=== PATIENT | male | born 1940 | race Caucasian/White ===

== ENCOUNTER 2016-09-04 04:19 | Inpatient (IN) | payer MEDICARE, BC ==
--- NOTE | 2016-09-04 04:58 | EDM.PDOC ---
ED HPI GENERAL MEDICAL PROBLEM - General Chief Complaint: Cardiovascular Problem Stated Complaint: SOB / LEG AND JOINT PAIN / UNABLE TO SLEEP Time Seen by Provider: 09/04/16 04:40 Source of Information: Reports: Patient, Family History Limitations: Reports: No Limitations - History of Present Illness INITIAL COMMENTS - FREE TEXT/NARRATIVE: pt arrived with sob and ankle swelling. He also feels like he has not been able to void. 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 He recently had a bone marrow donw. He has received procrit twice to get his hemoglobin up He recently has noted marked ankle swelling. Onset: Gradual Duration: Day(s): Location: Reports: Chest, Lower Extremity, Left, Lower Extremity, Right Associated Symptoms: Reports: Shortness of Breath, Other ( can,t sleep at nite. ) Knee/lower legs Pain Score (Numeric/FACES): 6 - Related Data Allergies Allergy/AdvReac Type Severity Reaction Status Date / Time adhesive tape Allergy Rash Verified 09/04/16 05:02 codeine Allergy Dizziness Verified 09/04/16 05:02 tiotropium Allergy Cannot Verified 09/04/16 05:02 [From Spiriva with Remember HandiHaler] Home Meds: Home Meds Albuterol Sulfate [Proair Hfa] 2 puff IH Q4HR PRN 09/04/16 [History] Albuterol/Ipratropium [DuoNeb 3.0-0.5 MG/3 ML] 3 ml INH Q4HR 09/04/16 [History] Ascorbic Acid 500 mg PO DAILY 09/04/16 [History] Aspirin [Halfprin] 81 mg PO DAILY 09/04/16 [History] Budesonide/Formoterol [Symbicort 160-4.5 MCG] 2 puff INH BID 09/04/16 [History] Cholecalciferol (Vitamin D3) [Vitamin D3] 400 unit PO DAILY 09/04/16 [History] Cyanocobalamin (Vitamin B12) [Vitamin B12] 1,000 mcg PO DAILY 09/04/16 [History] Doxycycline [Doxycycline Hyclate] 100 mg PO DAILY 09/04/16 [History] Ferrous Sulfate [Iron] 325 mg PO DAILY 09/04/16 [History] Folic Acid 1 mg PO DAILY 09/04/16 [History] Furosemide [Lasix] 20 mg PO DAILY 09/04/16 [History] HCTZ/Triamterene [Maxzide 25-37.5 MG] 1 each PO DAILY 09/04/16 [History] Ipratropium [Atrovent HFA Inh] 2 puff INH BID 09/04/16 [History] Losartan [Cozaar] 25 mg PO DAILY 09/04/16 [History] Metoprolol Tartrate [Lopressor] 25 mg PO BID 09/04/16 [History] Naproxen 500 mg PO BID 09/04/16 [History] [place]-3/DHA/Epa/Fish Oil [[place]-3 Fish Oil 1,000 MG Sfgl] 1,000 mg PO DAILY 04/22 [History] Simvastatin [Zocor] 40 mg PO BEDTIME 09/04/16 [History] ED ROS GENERAL - Review of Systems Review Of Systems: See Below Constitutional: Reports: No Symptoms HEENT: Reports: No Symptoms Respiratory: Reports: Shortness of Breath Cardiovascular: Reports: Dyspnea on Exertion, Edema Endocrine: Reports: No Symptoms GI/Abdominal: Reports: No Symptoms : Reports: Other (pt feels he is having problems voiding. ) Musculoskeletal: Reports: Muscle Pain Skin: Reports: No Symptoms ED EXAM, GENERAL - Physical Exam Exam: See Below Free Text/Narrative:: Pt fels like he is very fatiqued because he has not been able to rest. He has marked swelling in both legs. Exam Limited By: No Limitations General Appearance: Alert, Mild Distress Nose: Normal Inspection Throat/Mouth: Normal Inspection Head: Atraumatic Neck: Normal Inspection Respiratory/Chest: Decreased Breath Sounds, Other ( sob with activity) Cardiovascular: Regular Rate, Rhythm GI/Abdominal: Soft, Non-Tender, Other (bladder does not feel distended and there was very little in the bladder when a scan was done. ) (Male) Exam: Deferred Rectal (Males) Exam: Deferred Back Exam: Normal Inspection Extremities: Pedal Edema, Other ( plu 3 edema. ) Neurological: Alert, Oriented, Normal Cognition Psychiatric: Normal Affect Skin Exam: Jaundice, Pallor Course - Vital Signs Last Recorded V/S: Last Vital Signs Temp 36.6 C 09/04/16 04:41 Pulse 66 09/04/16 05:45 Resp 16 09/04/16 05:45 BP 152/68 H 09/04/16 05:58 Pulse Ox 97 09/04/16 05:10 - Orders/Labs/Meds Orders: Active Orders 24 hr Category Date Time Status EKG Documentation Completion [RC] ASDIRECTED Care 09/04/16 05:05 Active Chest 2V [CR] Stat Exams 09/04/16 05:02 Taken Sodium Chloride 0.9% [Saline Flush] Med 09/04/16 05:03 Active 10 ml FLUSH ASDIRECTED PRN Saline Lock Insert [OM.PC] Routine Oth 09/04/16 05:03 Ordered EKG 12 Lead [EK] Routine Ther 09/04/16 05:05 Ordered Medication Orders Sodium Chloride (Saline Flush) 10 ml FLUSH ASDIRECTED PRN PRN Reason: Keep Vein Open Last Admin: 09/04/16 05:58 Dose: 10 ml Labs: Laboratory Tests 09/04/16 09/04/16 09/04/16 Range/Units 04:48 04:48 04:48 WBC 4.4 L (4.5-11.0) K/uL RBC 2.68 L (4.30-5.90) M/uL Hgb 8.9 L (12.0-15.0) g/dL Hct 28.9 L (40.0-54.0) % MCV 108 H (80-98) fL MCH 33 H (27-31) pg MCHC 31 L (32-36) % Plt Count 139 L (150-400) K/uL Neut % (Auto) 66 (36-66) % Lymph % (Auto) 25 (24-44) % [facility] % (Auto) 7 H (2-6) % Eos % (Auto) 2 (2-4) % Baso % (Auto) 1 (0-1) % Sodium 137 L (140-148) mmol/L Potassium 4.0 (3.6-5.2) mmol/L Chloride 101 (100-108) mmol/L Carbon Dioxide 29 (21-32) mmol/L Anion Gap 11.0 (5.0-14.0) mmol/L BUN 61 H (7-18) mg/dL Creatinine 1.8 H (0.8-1.3) mg/dL Est Cr Clr Drug Dosing 36.00 mL/min Estimated GFR (MDRD) 37 L (>60) Glucose 106 (74-106) mg/dL Calcium 8.8 (8.5-10.1) mg/dL Total Bilirubin 2.3 H (0.2-1.0) mg/dL AST 79 H (15-37) U/L ALT 5 L (12-78) U/L Alkaline Phosphatase 38 L (46-116) U/L Creatine Kinase 93 (39-308) U/L Troponin I < 0.017 (0.000-0.056) ng/mL Xys-B-Rltyfauhnor Pept 6414 H (5-125) pg/mL Total Protein 7.2 (6.4-8.2) g/dL Albumin 3.9 (3.4-5.0) g/dL Globulin 3.3 (2.3-3.5) g/dL Albumin/Globulin Ratio 1.2 (1.2-2.2) Urine Color Urine Appearance Urine pH (4.5-8.0) Ur Specific [place] (1.008-1.030) Urine Protein (NEGATIVE) mg/dL Urine Glucose (UA) (NEGATIVE) mg/dL Urine Ketones (NEGATIVE) mg/dL Urine Occult Blood (NEGATIVE) Urine Nitrite (NEGAITVE) Urine Bilirubin (NEGATIVE) Urine Urobilinogen (NORMAL) mg/dL Ur Leukocyte Esterase (NEGATIVE) Urine RBC (0-5) Urine WBC (0-5) Ur Epithelial Cells Amorphous Sediment Urine Bacteria Urine Mucus 09/04/16 Range/Units 05:54 WBC (4.5-11.0) K/uL RBC (4.30-5.90) M/uL Hgb (12.0-15.0) g/dL Hct (40.0-54.0) % MCV (80-98) fL MCH (27-31) pg MCHC (32-36) % Plt Count (150-400) K/uL Neut % (Auto) (36-66) % Lymph % (Auto) (24-44) % [facility] % (Auto) (2-6) % Eos % (Auto) (2-4) % Baso % (Auto) (0-1) % Sodium (140-148) mmol/L Potassium (3.6-5.2) mmol/L Chloride (100-108) mmol/L Carbon Dioxide (21-32) mmol/L Anion Gap (5.0-14.0) mmol/L BUN (7-18) mg/dL Creatinine (0.8-1.3) mg/dL Est Cr Clr Drug Dosing mL/min Estimated GFR (MDRD) (>60) Glucose (74-106) mg/dL Calcium (8.5-10.1) mg/dL Total Bilirubin (0.2-1.0) mg/dL AST (15-37) U/L ALT (12-78) U/L Alkaline Phosphatase (46-116) U/L Creatine Kinase (39-308) U/L Troponin I (0.000-0.056) ng/mL Ujc-I-Ikaxmyacwqj Pept (5-125) pg/mL Total Protein (6.4-8.2) g/dL Albumin (3.4-5.0) g/dL Globulin (2.3-3.5) g/dL Albumin/Globulin Ratio (1.2-2.2) Urine Color Yellow Urine Appearance Clear Urine pH 5.0 (4.5-8.0) Ur Specific [place] 1.015 (1.008-1.030) Urine Protein Trace (NEGATIVE) mg/dL Urine Glucose (UA) Normal (NEGATIVE) mg/dL Urine Ketones Negative (NEGATIVE) mg/dL Urine Occult Blood Moderate (NEGATIVE) Urine Nitrite Negative (NEGAITVE) Urine Bilirubin Negative (NEGATIVE) Urine Urobilinogen Normal (NORMAL) mg/dL Ur Leukocyte Esterase Negative (NEGATIVE) Urine RBC 0-5 (0-5) Urine WBC 0-5 (0-5) Ur Epithelial Cells Few Amorphous Sediment Not seen Urine Bacteria Moderate Urine Mucus Not seen Meds: Medications Generic Name Dose Route Start Last Admin Trade Name Freq PRN Reason Stop Dose Admin Sodium Chloride 10 ml 09/04/16 05:03 09/04/16 05:58 Saline Flush FLUSH 10 ml ASDIRECTED PRN Administration Keep Vein Open Discontinued Medications Generic Name Dose Route Start Last Admin Trade Name Freq PRN Reason Stop Dose Admin Doxycycline Hyclate 100 mg 09/04/16 07:02 Vibramycin PO 09/04/16 07:03 ONETIME ONE Furosemide 60 mg 09/04/16 05:04 09/04/16 05:58 Lasix IVPUSH 09/04/16 05:05 60 mg ONETIME ONE Administration - Re-Assessments/Exams Free Text/Narrative Re-Assessment/Exam: 09/04/16 06:23 pt has a markedly elevated bnp. He has a 8.9 hg and a elevated bilirubin. His creatnine is elevated. He was given lasix 60mg iv. 09/04/16 06:25 he has a previous positive test for anaplamosis and he is on doxycline for that. He had a chest xray which shows soim chf and has alot of chronic changes. Departure - Departure Time of Disposition: 07:12 Disposition: Admitted As Inpatient 68 Reason for Transfer *Q: Primary PCI Indicated Condition: Fair Clinical Impression: Fluid overload, Anemia, Renal insufficiency, Elevated brain natriuretic peptide (BNP) level Forms: ED Department Discharge Care Plan Goals: admit to Dr Rawls - My Orders Last 24 Hours: My Active Orders 09/04/16 05:02 Chest 2V [CR] Stat 09/04/16 05:03 Sodium Chloride 0.9% [Saline Flush] 10 ml FLUSH ASDIRECTED PRN Saline Lock Insert [OM.PC] Routine 09/04/16 05:05 EKG Documentation Completion [RC] ASDIRECTED EKG 12 Lead [EK] Routine - Assessment/Plan Last 24 Hours: My Active Orders 09/04/16 05:02 Chest 2V [CR] Stat 09/04/16 05:03 Sodium Chloride 0.9% [Saline Flush] 10 ml FLUSH ASDIRECTED PRN Saline Lock Insert [OM.PC] Routine 09/04/16 05:05 EKG Documentation Completion [RC] ASDIRECTED EKG 12 Lead [EK] Routine
[2016-09-04] MEDS ORDERED: Sodium Chloride 0.9% 10 ML Syringe FLUSH PRN (05:03)
[2016-09-04] MEDS ORDERED: Furosemide 40 MG/4 ML VIAL IVPUSH ONE (05:04)
[2016-09-04] MEDS ORDERED: Doxycycline 100 MG Cap PO ONE (07:02)
--- NOTE | 2016-09-04 08:18 | PCM.HP ---
H&P History of Present Illness - General Date of Service: 09/04/16 Source of Information: Patient, EMS Notes Reviewed, Family History Limitations: Reports: No Limitations - History of Present Illness Initial Comments - Free Text/Narative: He has had shortness of breath for months. He stopped taking the inhaler and Losartan because of unable to pass urine when he started taking this medicine. He has been unable to sleep because of shortness of breath when he lays down. He came to the ER because of anxiety and nable to get his breath. Duration of Symptoms: Reports: Week(s):, Chronic Severity: Moderate Improves with: Reports: Other (sitting up) Worsens with: Reports: Rest Associated Symptoms: Reports: Shortness of Breath, Weakness, Other (panic attacks) Knee/lower legs Pain Score (Numeric/FACES): 6 - Related Data Allergies/Adverse Reactions: Allergies Allergy/AdvReac Type Severity Reaction Status Date / Time adhesive tape Allergy Rash Verified 09/04/16 05:02 tiotropium Allergy Cannot Verified 09/04/16 05:02 [From Spiriva with [facility] HandiHaler] codeine AdvReac Dizziness Verified 09/04/16 08:58 Home Medications: Home Meds Albuterol Sulfate [Proair Hfa] 2 puff IH Q4HR PRN 09/04/16 [History] Albuterol/Ipratropium [DuoNeb 3.0-0.5 MG/3 ML] 3 ml INH Q4HR 09/04/16 [History] Ascorbic Acid 500 mg PO DAILY 09/04/16 [History] Aspirin [Halfprin] 81 mg PO DAILY 09/04/16 [History] Budesonide/Formoterol [Symbicort 160-4.5 MCG] 2 puff INH BID 09/04/16 [History] Cholecalciferol (Vitamin D3) [Vitamin D3] 400 unit PO DAILY 09/04/16 [History] Cyanocobalamin (Vitamin B12) [Vitamin B12] 1,000 mcg PO DAILY 09/04/16 [History] Doxycycline [Doxycycline Hyclate] 100 mg PO BID 09/04/16 [History] Ferrous Sulfate [Iron] 325 mg PO DAILY 09/04/16 [History] Folic Acid 1 mg PO DAILY 09/04/16 [History] Furosemide [Lasix] 20 mg PO DAILY 09/04/16 [History] HCTZ/Triamterene [Maxzide 25-37.5 MG] 1 each PO DAILY 09/04/16 [History] Ipratropium [Atrovent HFA Inh] 2 puff INH BID 09/04/16 [History] Losartan [Cozaar] 25 mg PO DAILY 09/04/16 [History] Metoprolol Tartrate [Lopressor] 25 mg PO BID 09/04/16 [History] Naproxen 500 mg PO BID 09/04/16 [History] [place]-3/DHA/Epa/Fish Oil [[place]-3 Fish Oil 1,000 MG Sfgl] 1,000 mg PO DAILY 04/22 [History] Simvastatin [Zocor] 40 mg PO BEDTIME 09/04/16 [History] Past Medical History Cardiovascular History: Reports: Bypass, Hypertension, CO, SOB on Exertion Respiratory History: Reports: Sleep Apnea, SOB Psychiatric History: Reports: Anxiety, Depression Endocrine/Metabolic History: Reports: Obesity/BMI 30+ Oncologic (Cancer) History: Reports: Colon - Infectious Disease History Infectious Disease History: Reports: Chicken Pox, Measles, Mumps - Past Surgical History Cardiovascular Surgical History: Reports: Coronary Artery Bypass GI Surgical History: Reports: Colonoscopy Social & Family History - Tobacco Use Smoking Status *Q: Current Status Unknown - Caffeine Use Caffeine Use: Reports: Coffee - Recreational Drug Use Recreational Drug Use: No H&P Review of Systems - Review of Systems: Review Of Systems: See Below General: Reports: Weakness, Fatigue HEENT: Reports: No Symptoms Pulmonary: Reports: Shortness of Breath, Wheezing, Cough Cardiovascular: Reports: Dyspnea on Exertion, PND, Edema Gastrointestinal: Reports: Constipation Genitourinary: Reports: Frequency Musculoskeletal: Reports: Other (multiple joint pains) Skin: Reports: No Symptoms Neurological: Reports: Difficulty Walking, Weakness Hematologic/Lymphatic: Reports: Anemia Exam - Exam Exam: See Below - Vital Signs Vital Signs: Last Vital Signs Temp 97.4 F 09/04/16 07:46 Pulse 77 09/04/16 07:46 Resp 16 09/04/16 07:46 BP 108/45 L 09/04/16 07:46 Pulse Ox 93 L 09/04/16 07:46 Weight: 256 lb 13.416 oz - Exam General: Alert, Moderate Distress HEENT: PERRLA, Hearing Intact, Mucosa Moist & [place], Nares Patent, Normal Nasal Septum, Posterior Pharynx Clear, Conjunctiva Clear, EOMI, EACs Clear, TMs Clear Neck: Supple, Trachea Midline, 2 Lungs: Clear to Auscultation, Normal Respiratory Effort Cardiovascular: Regular Rate, Regular Rhythm Abdomen: Normal Bowel Sounds, Soft Peripheral Pulses: 1+: Radial (L), Radial (R) Neurological: Cranial Nerves Intact, Reflexes Equal Bilateral Neuro Extensive - Mental Status: Alert, Oriented x3, Normal Mood/Affect, Normal Cognition, Memory Intact DTR: 1+: Bicep (L), Bicep (R) Psychiatric: Alert, Normal Affect, Normal Mood - Patient Data Lab Results Last 24 hrs: Laboratory Results - last 24 hr 09/04/16 09/04/16 09/04/16 Range/Units 04:48 04:48 04:48 WBC 4.4 L (4.5-11.0) K/uL RBC 2.68 L (4.30-5.90) M/uL Hgb 8.9 L (12.0-15.0) g/dL Hct 28.9 L (40.0-54.0) % MCV 108 H (80-98) fL MCH 33 H (27-31) pg MCHC 31 L (32-36) % Plt Count 139 L (150-400) K/uL Neut % (Auto) 66 (36-66) % Lymph % (Auto) 25 (24-44) % [place] % (Auto) 7 H (2-6) % Eos % (Auto) 2 (2-4) % Baso % (Auto) 1 (0-1) % Sodium 137 L (140-148) mmol/L Potassium 4.0 (3.6-5.2) mmol/L Chloride 101 (100-108) mmol/L Carbon Dioxide 29 (21-32) mmol/L Anion Gap 11.0 (5.0-14.0) mmol/L BUN 61 H (7-18) mg/dL Creatinine 1.8 H (0.8-1.3) mg/dL Est Cr Clr Drug Dosing 36.00 mL/min Estimated GFR (MDRD) 37 L (>60) Glucose 106 (74-106) mg/dL Calcium 8.8 (8.5-10.1) mg/dL Total Bilirubin 2.3 H (0.2-1.0) mg/dL AST 79 H (15-37) U/L ALT 5 L (12-78) U/L Alkaline Phosphatase 38 L (46-116) U/L Creatine Kinase 93 (39-308) U/L Troponin I < 0.017 (0.000-0.056) ng/mL Pyl-S-Ewtbsuykvtg Pept 6414 H (5-125) pg/mL Total Protein 7.2 (6.4-8.2) g/dL Albumin 3.9 (3.4-5.0) g/dL Globulin 3.3 (2.3-3.5) g/dL Albumin/Globulin Ratio 1.2 (1.2-2.2) Urine Color Urine Appearance Urine pH (4.5-8.0) Ur Specific [place] (1.008-1.030) Urine Protein (NEGATIVE) mg/dL Urine Glucose (UA) (NEGATIVE) mg/dL Urine Ketones (NEGATIVE) mg/dL Urine Occult Blood (NEGATIVE) Urine Nitrite (NEGAITVE) Urine Bilirubin (NEGATIVE) Urine Urobilinogen (NORMAL) mg/dL Ur Leukocyte Esterase (NEGATIVE) Urine RBC (0-5) Urine WBC (0-5) Ur Epithelial Cells Amorphous Sediment Urine Bacteria Urine Mucus 09/04/16 Range/Units 05:54 WBC (4.5-11.0) K/uL RBC (4.30-5.90) M/uL Hgb (12.0-15.0) g/dL Hct (40.0-54.0) % MCV (80-98) fL MCH (27-31) pg MCHC (32-36) % Plt Count (150-400) K/uL Neut % (Auto) (36-66) % Lymph % (Auto) (24-44) % [place] % (Auto) (2-6) % Eos % (Auto) (2-4) % Baso % (Auto) (0-1) % Sodium (140-148) mmol/L Potassium (3.6-5.2) mmol/L Chloride (100-108) mmol/L Carbon Dioxide (21-32) mmol/L Anion Gap (5.0-14.0) mmol/L BUN (7-18) mg/dL Creatinine (0.8-1.3) mg/dL Est Cr Clr Drug Dosing mL/min Estimated GFR (MDRD) (>60) Glucose (74-106) mg/dL Calcium (8.5-10.1) mg/dL Total Bilirubin (0.2-1.0) mg/dL AST (15-37) U/L ALT (12-78) U/L Alkaline Phosphatase (46-116) U/L Creatine Kinase (39-308) U/L Troponin I (0.000-0.056) ng/mL Ooc-B-Ebnutlwhurz Pept (5-125) pg/mL Total Protein (6.4-8.2) g/dL Albumin (3.4-5.0) g/dL Globulin (2.3-3.5) g/dL Albumin/Globulin Ratio (1.2-2.2) Urine Color Yellow Urine Appearance Clear Urine pH 5.0 (4.5-8.0) Ur Specific [place] 1.015 (1.008-1.030) Urine Protein Trace (NEGATIVE) mg/dL Urine Glucose (UA) Normal (NEGATIVE) mg/dL Urine Ketones Negative (NEGATIVE) mg/dL Urine Occult Blood Moderate (NEGATIVE) Urine Nitrite Negative (NEGAITVE) Urine Bilirubin Negative (NEGATIVE) Urine Urobilinogen Normal (NORMAL) mg/dL Ur Leukocyte Esterase Negative (NEGATIVE) Urine RBC 0-5 (0-5) Urine WBC 0-5 (0-5) Ur Epithelial Cells Few Amorphous Sediment Not seen Urine Bacteria Moderate Urine Mucus Not seen Result Diagrams: 09/05/16 05:11 09/05/16 06:24 *Q Meaningful Use (ADM) - VTE *Q VTE Criteria *Q: - Stroke *Q Stroke Criteria *Q: - AMI *Q AMI Criteria *Q: Problem List Initiated/Reviewed/Updated: Yes Orders Last 24hrs: Active Orders 24 hr Category Date Time Status EKG Documentation Completion [RC] ASDIRECTED Care 09/04/16 05:05 Active Chest 2V [CR] Stat Exams 09/04/16 05:02 Taken Sodium Chloride 0.9% [Saline Flush] Med 09/04/16 05:03 Active 10 ml FLUSH ASDIRECTED PRN Saline Lock Insert [OM.PC] Routine Oth 09/04/16 05:03 Ordered EKG 12 Lead [EK] Routine Ther 09/04/16 05:05 Ordered Medication Orders Sodium Chloride (Saline Flush) 10 ml FLUSH ASDIRECTED PRN PRN Reason: Keep Vein Open Last Admin: 09/04/16 05:58 Dose: 10 ml Assessment/Plan Comment:: Assessment/plan: #1. Severe right heart failure with pulmonary edema and severe pulmonary hypertension. Will put in the hospital and remove the water and treat the heart failure. Will get an echocardiogram. #2. Mitral valve stenosis and insufficiency with S/P mitral valve repair #3. Pancytopenia with Poss. MDS and hemolytic anemia: will monitor his blood work. #4. Rectal Cancer with s/P chemo-radiation: #5. ASHD with CAPS X 2 2000 #6. HLD: Continue with simvastatin. #7. Increased urinary frequency urgency: Will monitor his urine flow and bladder function. #8. Morbid obesity:
[2016-09-04] MEDS ORDERED: Albuterol 8 GM Inhaler INH PRN (08:48)
[2016-09-04] MEDS ORDERED: Metoprolol Tartrate 25 MG Tab PO SCH (09:00)
[2016-09-04] MEDS ORDERED: Losartan 50 MG Tab PO SCH (09:00)
[2016-09-04] MEDS ORDERED: Glucose Gel 15 GM in 37.5 GM Tube PO PRN (09:54)
[2016-09-04] MEDS ORDERED: Glucagon,Human Recombinant 1 MG Vial IM PRN (09:54)
[2016-09-04] MEDS ORDERED: 50% Dextrose in Water 50 ML Syringe IVPUSH PRN (09:54)
[2016-09-04] MEDS: Hydrochlorothiazide/Triamterene 25-37.5 MG Cap PO SCH (10:06)
[2016-09-04] MEDS: Tamsulosin 0.4 MG Cap.ER PO SCH (10:07)
[2016-09-04] MEDS: Ferrous Sulfate 325 MG Tab PO SCH (10:07)
[2016-09-04] MEDS: Furosemide 40 MG Tab PO SCH ×2 (10:08→13:25)
[2016-09-04] MEDS: Folic Acid 1 MG Tab PO SCH (10:08)
[2016-09-04] MEDS: Aspirin 81 MG Tab.EC PO SCH (10:08)
[2016-09-04] MEDS: Enoxaparin 30 MG/0.3 ML Syringe SUBCUT SCH (10:10)
[2016-09-04] MEDS: Cholecalciferol (Vitamin D3) 1,000 Unit Tab PO SCH (10:11)
[2016-09-04] MEDS: Fish Oil/Omega-3 Fatty Acids 1 Gm Cap PO SCH (10:11)
[2016-09-04] MEDS: Naproxen 250 MG Tab PO SCH ×2 (10:11→21:51)
[2016-09-04] MEDS: Ascorbic Acid 500 MG Tab PO SCH (10:12)
[2016-09-04] MEDS: Cyanocobalamin (Vitamin B12) 1,000 MCG Tab PO SCH (10:12)
[2016-09-04] MEDS: Formoterol/Mometasone 200-5 MCG 8.8 GM Inhaler IH SCH ×2 (10:14→21:48)
[2016-09-04] MEDS: Pramipexole 0.5 MG Tab PO SCH ×2 (12:30→21:51)
[2016-09-04] MEDS ORDERED: Simvastatin 20 MG Tab PO SCH (21:00)
[2016-09-04] MEDS: Doxycycline 100 MG Cap PO SCH (21:51)
[2016-09-05] MEDS ORDERED: Doxycycline 100 MG Cap PO SCH (06:30)
[2016-09-05] MEDS: Doxycycline 100 MG Cap PO SCH ×2 (07:27→20:11)
[2016-09-05] MEDS: Insulin Aspart 100 Units/ML 3 ML Pen SUBCUT PRN (07:32)
--- NOTE | 2016-09-05 08:14 | PCM.PN ---
- General Info Date of Service: 09/05/16 Functional Status: Reports: pain controlled - Review of Systems General: Reports: Weakness HEENT: Reports: no symptoms Pulmonary: Reports: shortness of breath Cardiovascular: Reports: No Symptoms Gastrointestinal: Reports: No symptoms Genitourinary: Reports: no symptoms Musculoskeletal: Reports: no symptoms Skin: Reports: no symptoms Psychiatric: Reports: no symptoms - Patient Data Vitals - most recent: Last Vital Signs Temp 97.1 F 09/05/16 07:00 Pulse 65 09/05/16 07:00 Resp 18 09/05/16 07:00 BP 96/42 L 09/05/16 07:00 Pulse Ox 96 09/05/16 07:00 Weight - most recent: 256 lb 13.416 oz I&O - last 24 hours: Intake & Output 09/04/16 09/05/16 09/05/16 22:59 06:59 14:59 Intake Total 270 500 840 Output Total 1650 600 Balance -1380 -100 840 Lab Results last 24 hrs: Laboratory Results - last 24 hr 09/05/16 09/05/16 Range/Units 05:11 06:24 WBC 2.2 L (4.5-11.0) K/uL RBC 2.26 L (4.30-5.90) M/uL Hgb 7.6 L (12.0-15.0) g/dL Hct 24.6 L (40.0-54.0) % MCV 109 H (80-98) fL MCH 34 H (27-31) pg MCHC 31 L (32-36) % Plt Count 111 L (150-400) K/uL Neut % (Auto) 61 (36-66) % Lymph % (Auto) 28 (24-44) % [place] % (Auto) 9 H (2-6) % Eos % (Auto) 2 (2-4) % Baso % (Auto) 1 (0-1) % Sodium 137 L (140-148) mmol/L Potassium 3.9 (3.6-5.2) mmol/L Chloride 102 (100-108) mmol/L Carbon Dioxide 28 (21-32) mmol/L Anion Gap 10.9 (5.0-14.0) mmol/L BUN 65 H (7-18) mg/dL Creatinine 1.8 H (0.8-1.3) mg/dL Est Cr Clr Drug Dosing 35.88 mL/min Estimated GFR (MDRD) 37 L (>60) Glucose 99 (74-106) mg/dL Calcium 8.5 (8.5-10.1) mg/dL Med Orders - Current: Current Medications Albuterol (Ventolin Hfa) 0 gm INH Q4H PRN PRN Reason: Wheezing Ascorbic Acid (Vitamin C) 500 mg PO DAILY [facility] Last Admin: 09/04/16 10:12 Dose: 500 mg Aspirin (Halfprin) 81 mg PO DAILY [facility] Last Admin: 09/04/16 10:08 Dose: 81 mg Cholecalciferol (Vitamin D3) 500 units PO DAILY [facility] Last Admin: 09/04/16 10:11 Dose: 500 units Cyanocobalamin (Vitamin B12) 1,000 mcg PO DAILY [facility] Last Admin: 09/04/16 10:12 Dose: 1,000 mcg Dextrose (Glutose 15) 15 gm PO ASDIRECTED PRN PRN Reason: HYPOGLYCEMIA Dextrose/Water (Dextrose 50% In Water) 50 ml IVPUSH ASDIRECTED PRN PRN Reason: HYPOGLYCEMIA Doxycycline Hyclate (Vibramycin) 100 mg PO BID@0600,2100 [facility] Last Admin: 09/05/16 07:27 Dose: 100 mg Enoxaparin Sodium (Lovenox) 30 mg SUBCUT DAILY [facility] Last Admin: 09/04/16 10:10 Dose: 30 mg Ferrous Sulfate (Ferrous Sulfate) 325 mg PO DAILY [facility] Last Admin: 09/04/16 10:07 Dose: 325 mg Fish Oil (Fish Oil) 1 gm PO DAILY [facility] Last Admin: 09/04/16 10:11 Dose: 1 gm Folic Acid (Folic Acid) 1 mg PO DAILY [facility] Last Admin: 09/04/16 10:08 Dose: 1 mg Furosemide (Lasix) 40 mg PO BIDDIURETIC [facility] Last Admin: 09/04/16 13:25 Dose: 40 mg Glucagon (Glucagen) 1 mg IM ASDIRECTED PRN PRN Reason: HYPOGLYCEMIA Insulin Aspart (Novolog) 0 - 5 unit SUBCUT QID PRN; Protocol PRN Reason: LOW CORRECTIONAL DOSE Last Admin: 09/05/16 07:32 Dose: 1 unit Mometasone Furoate/Formoterol Fumar (Dulera 200-5 Mcg) 2 puff IH BIDRT [facility] Last Admin: 09/04/16 21:48 Dose: Not Given Naproxen (Naprosyn) 500 mg PO BID [facility] Last Admin: 09/04/16 21:51 Dose: 500 mg Pramipexole Dihydrochloride (Mirapex) 0.125 mg PO BID [facility] Last Admin: 09/04/16 21:51 Dose: 0.125 mg Simvastatin (Zocor) 40 mg PO BEDTIME [facility] Last Admin: 09/04/16 21:49 Dose: 40 mg Sodium Chloride (Saline Flush) 10 ml FLUSH ASDIRECTED PRN PRN Reason: Keep Vein Open Last Admin: 09/04/16 05:58 Dose: 10 ml Tamsulosin HCl (Flomax) 0.4 mg PO PCBREAKFAST [facility] Last Admin: 09/04/16 10:07 Dose: 0.4 mg Triamterene/HCTZ (Dyazide 25-37.5 Mg) 1 each PO DAILY [facility] Last Admin: 09/04/16 10:06 Dose: 1 each Discontinued Medications Doxycycline Hyclate (Vibramycin) 100 mg PO ONETIME ONE Stop: 09/04/16 07:03 Last Admin: 09/04/16 07:34 Dose: 100 mg Furosemide (Lasix) 60 mg IVPUSH ONETIME ONE Stop: 09/04/16 05:05 Last Admin: 09/04/16 05:58 Dose: 60 mg Losartan Potassium (Cozaar) 25 mg PO DAILY [facility] Last Admin: 09/04/16 10:05 Dose: 25 mg Metoprolol Tartrate (Lopressor) 25 mg PO BID [facility] Last Admin: 09/04/16 10:09 Dose: 25 mg - Exam General: other (very tired falling asleep almost during a conversation) Neck: supple Lungs: Clear to auscultation, Normal respiratory effort Cardiovascular: Regular Rate, Regular Rhythm Extremities: edema Peripheral Pulses: 1+: Radial (L), Radial (R) Skin: warm, dry, intact Neurological: no new focal deficit Psy/Mental Status: labile mood - Problem List Review Problem List Initiated/Reviewed/Updated: Yes - My Orders Last 24 Hours: My Active Orders 09/04/16 08:48 Albuterol [Ventolin HFA] 0 gm INH Q4H PRN 09/04/16 09:00 Ascorbic Acid [Vitamin C] 500 mg PO DAILY Aspirin [Halfprin] 81 mg PO DAILY Cholecalciferol (Vitamin D3) [Vitamin D3] 500 units PO DAILY Cyanocobalamin (Vitamin B12) [Vitamin B12] 1,000 mcg PO DAILY Ferrous Sulfate 325 mg PO DAILY Folic Acid 1 mg PO DAILY Furosemide [Lasix] 40 mg PO BIDDIURETIC HCTZ/Triamterene [Dyazide 25-37.5 MG] 1 each PO DAILY Tamsulosin [Flomax] 0.4 mg PO PCBREAKFAST 09/04/16 09:15 Fish Oil/Energy-3 Fatty Acids [Fish Oil] 1 gm PO DAILY Mometasone/Formoterol [Dulera 200-5 MCG] 2 puff IH BIDRT Naproxen [Naprosyn] 500 mg PO BID 09/04/16 09:54 Dextrose 50% in Water 50 ml IVPUSH ASDIRECTED PRN Dextrose [Glutose 15] 15 gm PO ASDIRECTED PRN Glucagon,Human Recombinant [GlucaGen] 1 mg IM ASDIRECTED PRN Insulin Aspart [NovoLOG] 0 - 5 unit SUBCUT QID PRN 09/04/16 11:30 Accu Check [Blood Glucose Check, Bedside] [RC] QIDACANDBED Pramipexole [Mirapex] 0.125 mg PO BID 09/04/16 20:00 Communication Order [RC] ASDIRECTED 09/04/16 21:00 Doxycycline [Vibramycin] 100 mg PO BID@0600,2100 Simvastatin [Zocor] 40 mg PO BEDTIME 09/05/16 07:00 Echo Ltd [US] Routine 09/05/16 08:05 RED BLOOD CELLS LP [BBK] Routine TYPE AND SCREEN [BBK] Routine Transfuse Red Blood Cells [COMM] Routine 09/05/16 08:06 Communication Order [RC] ROUTINE 09/05/16 08:15 Communication Order [RC] DAILY 09/05/16 11:30 GLUCOSE POC LAB TO COLLECT [POC] QIDACANDBED 09/05/16 16:30 GLUCOSE POC LAB TO COLLECT [POC] QIDACANDBED 09/05/16 21:00 GLUCOSE POC LAB TO COLLECT [POC] QIDACANDBED 09/06/16 07:30 GLUCOSE POC LAB TO COLLECT [POC] QIDACANDBED 09/06/16 11:30 GLUCOSE POC LAB TO COLLECT [POC] QIDACANDBED 09/06/16 16:30 GLUCOSE POC LAB TO COLLECT [POC] QIDACANDBED 09/06/16 21:00 GLUCOSE POC LAB TO COLLECT [POC] QIDACANDBED 09/07/16 07:30 GLUCOSE POC LAB TO COLLECT [POC] QIDACANDBED 09/07/16 11:30 GLUCOSE POC LAB TO COLLECT [POC] QIDACANDBED 09/07/16 16:30 GLUCOSE POC LAB TO COLLECT [POC] QIDACANDBED 09/07/16 21:00 GLUCOSE POC LAB TO COLLECT [POC] QIDACANDBED 09/08/16 07:30 GLUCOSE POC LAB TO COLLECT [POC] QIDACANDBED 09/08/16 11:30 GLUCOSE POC LAB TO COLLECT [POC] QIDACANDBED 09/08/16 16:30 GLUCOSE POC LAB TO COLLECT [POC] QIDACANDBED 09/08/16 21:00 GLUCOSE POC LAB TO COLLECT [POC] QIDACANDBED 09/09/16 07:30 GLUCOSE POC LAB TO COLLECT [POC] QIDACANDBED 09/09/16 11:30 GLUCOSE POC LAB TO COLLECT [POC] QIDACANDBED 09/09/16 16:30 GLUCOSE POC LAB TO COLLECT [POC] QIDACANDBED 09/09/16 21:00 GLUCOSE POC LAB TO COLLECT [POC] QIDACANDBED 09/10/16 07:30 GLUCOSE POC LAB TO COLLECT [POC] QIDACANDBED 09/10/16 11:30 GLUCOSE POC LAB TO COLLECT [POC] QIDACANDBED - Plan Plan:: Assessment/plan: #1. Severe right heart failure with pulmonary edema and severe pulmonary hypertension. Echocardiogram to be done today. #2. Mitral valve stenosis and insufficiency with S/P mitral valve repair #3. Pancytopenia with Poss. MDS and hemolytic anemia: will monitor his blood work. Hb down to 7.6 today. Will give blood today. #4. Rectal Cancer with s/P chemo-radiation: #5. ASHD with CAPS X 2 2000 #6. HLD: Continue with simvastatin. #7. Increased urinary frequency urgency resolved presently. #8. Morbid obesity: #9. Chronic renal failure.
[2016-09-05] MEDS: Furosemide 40 MG Tab PO SCH ×2 (09:29→14:14)
[2016-09-05] MEDS: Ascorbic Acid 500 MG Tab PO SCH (09:29)
[2016-09-05] MEDS: Aspirin 81 MG Tab.EC PO SCH (09:29)
[2016-09-05] MEDS: Tamsulosin 0.4 MG Cap.ER PO SCH (09:29)
[2016-09-05] MEDS: Cholecalciferol (Vitamin D3) 1,000 Unit Tab PO SCH (09:30)
[2016-09-05] MEDS: Pramipexole 0.5 MG Tab PO SCH ×2 (09:30→20:13)
[2016-09-05] MEDS: Folic Acid 1 MG Tab PO SCH (09:31)
[2016-09-05] MEDS: Hydrochlorothiazide/Triamterene 25-37.5 MG Cap PO SCH (09:31)
[2016-09-05] MEDS: Fish Oil/Omega-3 Fatty Acids 1 Gm Cap PO SCH (09:31)
[2016-09-05] MEDS: Naproxen 250 MG Tab PO SCH ×2 (09:31→20:12)
--- NOTE | 2016-09-05 09:31 | CR ---
Mild-moderate cardiomegaly. Sternotomy. No focal consolidation.
[2016-09-05] MEDS: Ferrous Sulfate 325 MG Tab PO SCH (09:32)
[2016-09-05] MEDS: Cyanocobalamin (Vitamin B12) 1,000 MCG Tab PO SCH (09:32)
[2016-09-05] MEDS: Enoxaparin 30 MG/0.3 ML Syringe SUBCUT SCH (09:32)
[2016-09-05] MEDS: Formoterol/Mometasone 200-5 MCG 8.8 GM Inhaler IH SCH (20:13)
[2016-09-05] MEDS ORDERED: Simvastatin 20 MG Tab PO SCH (21:00)
[2016-09-06] MEDS ORDERED: Pramipexole 0.5 MG Tab PO SCH
[2016-09-06] MEDS: Furosemide 40 MG Tab PO SCH (07:02)
[2016-09-06] MEDS: Doxycycline 100 MG Cap PO SCH (07:02)
[2016-09-06 07:12] VITALS: BP 137/60
[2016-09-06] MEDS ORDERED: Metoprolol Tartrate 25 MG Tab PO SCH (08:00)
[2016-09-06] MEDS: Ferrous Sulfate 325 MG Tab PO SCH (08:30)
[2016-09-06] MEDS: Fish Oil/Omega-3 Fatty Acids 1 Gm Cap PO SCH (08:30)
[2016-09-06] MEDS: Tamsulosin 0.4 MG Cap.ER PO SCH (08:30)
[2016-09-06] MEDS: Hydrochlorothiazide/Triamterene 25-37.5 MG Cap PO SCH (08:30)
[2016-09-06] MEDS: Folic Acid 1 MG Tab PO SCH (08:31)
[2016-09-06] MEDS: Enoxaparin 30 MG/0.3 ML Syringe SUBCUT SCH (08:31)
[2016-09-06] MEDS: Aspirin 81 MG Tab.EC PO SCH (08:31)
[2016-09-06] MEDS: Naproxen 250 MG Tab PO SCH ×2 (08:32→08:40)
[2016-09-06] MEDS: Pramipexole 0.5 MG Tab PO SCH (08:32)
[2016-09-06] MEDS: Cholecalciferol (Vitamin D3) 1,000 Unit Tab PO SCH (08:33)
[2016-09-06] MEDS: Ascorbic Acid 500 MG Tab PO SCH (08:33)
[2016-09-06] MEDS: Cyanocobalamin (Vitamin B12) 1,000 MCG Tab PO SCH (08:33)
[2016-09-06] MEDS: Insulin Aspart 100 Units/ML 3 ML Pen SUBCUT PRN (08:34)
[2016-09-06] MEDS ORDERED: Hydrochlorothiazide/Triamterene 25-37.5 MG Cap PO SCH (09:00)
--- NOTE | 2016-09-06 09:13 | PCM.PN ---
- General Info Date of Service: 09/06/16 Functional Status: Reports: pain controlled - Review of Systems General: Reports: Weakness HEENT: Reports: no symptoms Pulmonary: Reports: shortness of breath Cardiovascular: Reports: No Symptoms Gastrointestinal: Reports: No symptoms Musculoskeletal: Reports: no symptoms Skin: Reports: no symptoms Neurological: Reports: No Symptoms Psychiatric: Reports: no symptoms - Patient Data Vitals - most recent: Last Vital Signs Temp 98 F 09/06/16 07:09 Pulse 89 09/06/16 08:29 Resp 20 09/06/16 07:09 BP 137/60 09/06/16 08:29 Pulse Ox 95 09/06/16 07:09 Weight - most recent: 247 lb 8 oz I&O - last 24 hours: Intake & Output 09/05/16 09/06/16 09/06/16 22:59 06:59 14:59 Intake Total 120 Output Total 1900 1000 Balance -1780 -1000 Lab Results last 24 hrs: Laboratory Results - last 24 hr 09/05/16 09/05/16 Range/Units 06:20 14:35 Hgb 8.5 L (12.0-15.0) g/dL Blood Type O POSITIVE Gel Antibody Screen Negative Crossmatch See Detail Med Orders - Current: Current Medications Albuterol (Ventolin Hfa) 0 gm INH Q4H PRN PRN Reason: Wheezing Ascorbic Acid (Vitamin C) 500 mg PO DAILY [facility] Last Admin: 09/06/16 08:33 Dose: 500 mg Aspirin (Halfprin) 81 mg PO DAILY [facility] Last Admin: 09/06/16 08:31 Dose: 81 mg Cholecalciferol (Vitamin D3) 500 units PO DAILY [facility] Last Admin: 09/06/16 08:33 Dose: 500 units Cyanocobalamin (Vitamin B12) 1,000 mcg PO DAILY [facility] Last Admin: 09/06/16 08:33 Dose: 1,000 mcg Dextrose (Glutose 15) 15 gm PO ASDIRECTED PRN PRN Reason: HYPOGLYCEMIA Dextrose/Water (Dextrose 50% In Water) 50 ml IVPUSH ASDIRECTED PRN PRN Reason: HYPOGLYCEMIA Doxycycline Hyclate (Vibramycin) 100 mg PO BID@0600,2100 [facility] Last Admin: 09/06/16 07:02 Dose: 100 mg Enoxaparin Sodium (Lovenox) 30 mg SUBCUT DAILY [facility] Last Admin: 09/06/16 08:31 Dose: 30 mg Ferrous Sulfate (Ferrous Sulfate) 325 mg PO DAILY [facility] Last Admin: 09/06/16 08:30 Dose: 325 mg Fish Oil (Fish Oil) 1 gm PO DAILY [facility] Last Admin: 09/06/16 08:30 Dose: 1 gm Folic Acid (Folic Acid) 1 mg PO DAILY [facility] Last Admin: 09/06/16 08:31 Dose: 1 mg Furosemide (Lasix) 40 mg PO BIDDIURETIC [facility] Last Admin: 09/06/16 07:02 Dose: 40 mg Glucagon (Glucagen) 1 mg IM ASDIRECTED PRN PRN Reason: HYPOGLYCEMIA Insulin Aspart (Novolog) 0 - 5 unit SUBCUT QID PRN; Protocol PRN Reason: LOW CORRECTIONAL DOSE Last Admin: 09/06/16 08:34 Dose: 1 unit Metoprolol Tartrate (Lopressor) 12.5 mg PO Q12H [facility] Last Admin: 09/06/16 08:29 Dose: 12.5 mg Mometasone Furoate/Formoterol Fumar (Dulera 200-5 Mcg) 2 puff IH BIDRT [facility] Last Admin: 09/05/16 20:13 Dose: Not Given Naproxen (Naprosyn) 500 mg PO BID [facility] Last Admin: 09/06/16 08:40 Dose: Not Given Pramipexole Dihydrochloride (Mirapex) 0.125 mg PO BID [facility] Last Admin: 09/06/16 08:32 Dose: 0.125 mg Simvastatin (Zocor) 40 mg PO BEDTIME [facility] Sodium Chloride (Saline Flush) 10 ml FLUSH ASDIRECTED PRN PRN Reason: Keep Vein Open Last Admin: 09/04/16 05:58 Dose: 10 ml Tamsulosin HCl (Flomax) 0.4 mg PO PCBREAKFAST [facility] Last Admin: 09/06/16 08:30 Dose: 0.4 mg Triamterene/HCTZ (Dyazide 25-37.5 Mg) 1 each PO DAILY [facility] Last Admin: 09/06/16 08:30 Dose: 1 each Discontinued Medications Doxycycline Hyclate (Vibramycin) 100 mg PO ONETIME ONE Stop: 09/04/16 07:03 Last Admin: 09/04/16 07:34 Dose: 100 mg Furosemide (Lasix) 60 mg IVPUSH ONETIME ONE Stop: 09/04/16 05:05 Last Admin: 09/04/16 05:58 Dose: 60 mg Losartan Potassium (Cozaar) 25 mg PO DAILY [facility] Last Admin: 09/04/16 10:05 Dose: 25 mg Metoprolol Tartrate (Lopressor) 25 mg PO BID [facility] Last Admin: 09/04/16 10:09 Dose: 25 mg Simvastatin (Zocor) 40 mg PO BEDTIME [facility] Last Admin: 09/04/16 21:49 Dose: 40 mg Simvastatin (Zocor) 20 mg PO BEDTIME [facility] Last Admin: 09/05/16 20:12 Dose: 20 mg - Exam General: alert, oriented HEENT: Pupils equal, Pupils reactive, EOMI, Mucous membr. moist/pink Neck: supple Lungs: Clear to auscultation, Normal respiratory effort Cardiovascular: Regular Rate, Regular Rhythm Back Exam: Normal Inspection, Full Range of Motion Peripheral Pulses: 1+: Radial (L), Radial (R) Skin: warm, dry, intact - Problem List Review Problem List Initiated/Reviewed/Updated: Yes - My Orders Last 24 Hours: My Active Orders 09/05/16 08:15 Communication Order [RC] DAILY 09/06/16 08:00 Metoprolol Tartrate [Lopressor] 12.5 mg PO Q12H 09/06/16 08:11 RT Spirometry with Bronchodilator [RESPCARE] Routine 09/06/16 11:30 GLUCOSE POC LAB TO COLLECT [POC] QIDACANDBED 09/06/16 16:30 GLUCOSE POC LAB TO COLLECT [POC] QIDACANDBED 09/06/16 21:00 GLUCOSE POC LAB TO COLLECT [POC] QIDACANDBED Simvastatin [Zocor] 40 mg PO BEDTIME 09/07/16 05:11 BASIC METABOLIC PANEL,BMP [CHEM] Routine CBC WITH AUTO DIFF [HEME] Routine 09/07/16 07:30 GLUCOSE POC LAB TO COLLECT [POC] QIDACANDBED 09/07/16 11:30 GLUCOSE POC LAB TO COLLECT [POC] QIDACANDBED 09/07/16 16:30 GLUCOSE POC LAB TO COLLECT [POC] QIDACANDBED 09/07/16 21:00 GLUCOSE POC LAB TO COLLECT [POC] QIDACANDBED 09/08/16 07:30 GLUCOSE POC LAB TO COLLECT [POC] QIDACANDBED 09/08/16 11:30 GLUCOSE POC LAB TO COLLECT [POC] QIDACANDBED 09/08/16 16:30 GLUCOSE POC LAB TO COLLECT [POC] QIDACANDBED 09/08/16 21:00 GLUCOSE POC LAB TO COLLECT [POC] QIDACANDBED 09/09/16 07:30 GLUCOSE POC LAB TO COLLECT [POC] QIDACANDBED 09/09/16 11:30 GLUCOSE POC LAB TO COLLECT [POC] QIDACANDBED 09/09/16 16:30 GLUCOSE POC LAB TO COLLECT [POC] QIDACANDBED 09/09/16 21:00 GLUCOSE POC LAB TO COLLECT [POC] QIDACANDBED 09/10/16 07:30 GLUCOSE POC LAB TO COLLECT [POC] QIDACANDBED 09/10/16 11:30 GLUCOSE POC LAB TO COLLECT [POC] QIDACANDBED - Plan Plan:: Assessment/plan: #1. Severe right heart failure with pulmonary edema and severe pulmonary hypertension. Echocardiogram report shows severe right heart failure and mitral valve disease. #2. Mitral valve stenosis and insufficiency with S/P mitral valve repair #3. Pancytopenia with Poss. MDS and hemolytic anemia: will monitor his blood work. Hb down to 8.5 today after one unit of blood yesterday. #4. Rectal Cancer with s/P chemo-radiation: #5. ASHD with CAPS X 2 2000 #6. HLD: Continue with simvastatin. #7. Increased urinary frequency urgency resolved presently. #8. Morbid obesity: #9. Chronic renal failure. #10. COPD: Have ordered a PFT with and without bronchodilators. #11. Palpations: blood pressure is up today so will restart metoprolol which should help control bp and heart rate.
--- NOTE | 2016-09-06 10:05 | PCM.DCSUM1 ---
Discharge Summary - Hospital Course Brief History: He has had shortness of breath for months. He stopped taking the inhaler and Losartan because of unable to pass urine when he started taking this medicine. He has been unable to sleep because of shortness of breath when he lays down. He came to the ER because of anxiety and nable to get his breath. - Discharge Data Discharge Date: 09/06/16 Discharge Disposition: Home, Self-Care 01 Condition: Good - Patient Summary/Data Hospital Course: He has improved with lasix with water loss and breathing better. The Echo cardiogram showed severe right heart failure and severe mitral valve disease. He has mod. to severe mitral valve regurgitation and aortic insufficiency and severe mitral valve stenosis. He also has severe pulmonary hypertension. This has been evaluated by a spray painter helper and the risk is to great for valve surgery.He will start taking inhalers which he has at home. - Patient Instructions Diet: Heart Healthy Diet Activity: As Tolerated - Discharge Plan Home Medications: Home Meds Albuterol Sulfate [Proair Hfa] 2 puff IH Q4HR PRN 09/04/16 [History] Albuterol/Ipratropium [DuoNeb 3.0-0.5 MG/3 ML] 3 ml INH Q4HR 09/04/16 [History] Ascorbic Acid 500 mg PO DAILY 09/04/16 [History] Aspirin [Halfprin] 81 mg PO DAILY 09/04/16 [History] Budesonide/Formoterol [Symbicort 160-4.5 MCG] 2 puff INH BID 09/04/16 [History] Cholecalciferol (Vitamin D3) [Vitamin D3] 400 unit PO DAILY 09/04/16 [History] Cyanocobalamin (Vitamin B12) [Vitamin B12] 1,000 mcg PO DAILY 09/04/16 [History] Doxycycline [Doxycycline Hyclate] 100 mg PO BID 09/04/16 [History] Ferrous Sulfate [Iron] 325 mg PO DAILY 09/04/16 [History] Folic Acid 1 mg PO DAILY 09/04/16 [History] Furosemide [Lasix] 20 mg PO DAILY 09/04/16 [History] HCTZ/Triamterene [Maxzide 25-37.5 MG] 1 each PO DAILY 09/04/16 [History] Ipratropium [Atrovent HFA Inh] 2 puff INH BID 09/04/16 [History] Losartan [Cozaar] 25 mg PO DAILY 09/04/16 [History] Metoprolol Tartrate [Lopressor] 25 mg PO BID 09/04/16 [History] Naproxen 500 mg PO BID 09/04/16 [History] [place]-3/DHA/Epa/Fish Oil [[place]-3 Fish Oil 1,000 MG Sfgl] 1,000 mg PO DAILY 04/22 [History] Simvastatin [Zocor] 20 mg PO BEDTIME 09/04/16 [History] Forms: ED Department Discharge Referrals: Hiro Rawls Sr, MD [Primary Care Provider] - - Discharge Summary/Plan Comment Discharge Summary/Plan Comment: Assessment/plan: #1. Severe right heart failure with pulmonary edema and severe pulmonary hypertension. Echocardiogram report shows severe right heart failure and mitral valve disease. Will continue with lasix at home. #2. Mitral valve stenosis and insufficiency with S/P mitral valve repair #3. Pancytopenia with Poss. MDS and hemolytic anemia: will monitor his blood work. Hb down to 8.5 today after one unit of blood yesterday. #4. Rectal Cancer with s/P chemo-radiation: #5. ASHD with CAPS X 2 2000 #6. HLD: Continue with simvastatin. #7. Increased urinary frequency urgency resolved presently. #8. Morbid obesity: #9. Chronic renal failure. #10. COPD: Have ordered a PFT with and without bronchodilators which can't be done today. He will restart his inhaler when he gets home. #11. Palpations: blood pressure is up today so will restart metoprolol which should help control bp and heart rate. - Patient Data Vitals - Most Recent: Last Vital Signs Temp 98 F 09/06/16 07:09 Pulse 89 09/06/16 08:29 Resp 20 09/06/16 07:09 BP 137/60 09/06/16 08:29 Pulse Ox 95 09/06/16 07:09 Weight - Most Recent: 256 lb 13.416 oz I&O - Last 24 hours: Intake & Output 09/05/16 09/06/16 09/06/16 22:59 06:59 14:59 Intake Total 120 300 Output Total 1900 1000 Balance -1780 -1000 300 Lab Results - Last 24 hrs: Laboratory Results - last 24 hr 09/05/16 09/05/16 Range/Units 06:20 14:35 Hgb 8.5 L (12.0-15.0) g/dL Blood Type O POSITIVE Gel Antibody Screen Negative Crossmatch See Detail Med Orders - Current: Current Medications Albuterol (Ventolin Hfa) 0 gm INH Q4H PRN PRN Reason: Wheezing Ascorbic Acid (Vitamin C) 500 mg PO DAILY [facility] Last Admin: 09/06/16 08:33 Dose: 500 mg Aspirin (Halfprin) 81 mg PO DAILY [facility] Last Admin: 09/06/16 08:31 Dose: 81 mg Cholecalciferol (Vitamin D3) 500 units PO DAILY [facility] Last Admin: 09/06/16 08:33 Dose: 500 units Cyanocobalamin (Vitamin B12) 1,000 mcg PO DAILY [facility] Last Admin: 09/06/16 08:33 Dose: 1,000 mcg Doxycycline Hyclate (Vibramycin) 100 mg PO BID@0600,2100 [facility] Last Admin: 09/06/16 07:02 Dose: 100 mg Enoxaparin Sodium (Lovenox) 30 mg SUBCUT DAILY [facility] Last Admin: 09/06/16 08:31 Dose: 30 mg Ferrous Sulfate (Ferrous Sulfate) 325 mg PO DAILY [facility] Last Admin: 09/06/16 08:30 Dose: 325 mg Fish Oil (Fish Oil) 1 gm PO DAILY [facility] Last Admin: 09/06/16 08:30 Dose: 1 gm Folic Acid (Folic Acid) 1 mg PO DAILY [facility] Last Admin: 09/06/16 08:31 Dose: 1 mg Furosemide (Lasix) 40 mg PO BIDDIURETIC REPLACED BY [facility] Last Admin: 09/06/16 07:02 Dose: 40 mg Metoprolol Tartrate (Lopressor) 12.5 mg PO Q12H [facility] Last Admin: 09/06/16 08:29 Dose: 12.5 mg Mometasone Furoate/Formoterol Fumar (Dulera 200-5 Mcg) 2 puff IH BIDRT REPLACED [facility] Last Admin: 09/05/16 20:13 Dose: Not Given Pramipexole Dihydrochloride (Mirapex) 0.125 mg PO BID [facility] Last Admin: 09/06/16 08:32 Dose: 0.125 mg Simvastatin (Zocor) 40 mg PO BEDTIME [facility]PLAC[facility] Sodium Chloride (Saline Flush) 10 ml FLUSH ASDIRECTED PRN PRN Reason: Keep Vein Open Last Admin: 09/04/16 05:58 Dose: 10 ml Tamsulosin HCl (Flomax) 0.4 mg PO PCBREAKFAST REPLACED BY [facility] Last Admin: 09/06/16 08:30 Dose: 0.4 mg Triamterene/HCTZ (Dyazide 25-37.5 Mg) 1 each PO DAILY [facility] Last Admin: 09/06/16 08:30 Dose: 1 each Discontinued Medications Dextrose (Glutose 15) 15 gm PO ASDIRECTED PRN PRN Reason: HYPOGLYCEMIA Dextrose/Water (Dextrose 50% In Water) 50 ml IVPUSH ASDIRECTED PRN PRN Reason: HYPOGLYCEMIA Doxycycline Hyclate (Vibramycin) 100 mg PO ONETIME ONE Stop: 09/04/16 07:03 Last Admin: 09/04/16 07:34 Dose: 100 mg Furosemide (Lasix) 60 mg IVPUSH ONETIME ONE Stop: 09/04/16 05:05 Last Admin: 09/04/16 05:58 Dose: 60 mg Glucagon (Glucagen) 1 mg IM ASDIRECTED PRN PRN Reason: HYPOGLYCEMIA Insulin Aspart (Novolog) 0 - 5 unit SUBCUT QID PRN; Protocol PRN Reason: LOW CORRECTIONAL DOSE Last Admin: 09/06/16 08:34 Dose: 1 unit Losartan Potassium (Cozaar) 25 mg PO DAILY [facility] Last Admin: 09/04/16 10:05 Dose: 25 mg Metoprolol Tartrate (Lopressor) 25 mg PO BID REPLACED BY [facility] Last Admin: 09/04/16 10:09 Dose: 25 mg Naproxen (Naprosyn) 500 mg PO BID REPLACED BY [facility] Last Admin: 09/06/16 08:40 Dose: Not Given Simvastatin (Zocor) 40 mg PO BEDTIME REPLACED BY [facility] Last Admin: 09/04/16 21:49 Dose: 40 mg Simvastatin (Zocor) 20 mg PO BEDTIME REPLACED BY [facility] Last Admin: 09/05/16 20:12 Dose: 20 mg *Q Meaningful Use (DIS) - VTE *Q VTE Criteria *Q: - Stroke *Q Stroke Criteria *Q: - AMI *Q AMI Criteria *Q:
[2016-09-06] MEDS ORDERED: Simvastatin 20 MG Tab PO SCH (21:00)
== END 2016-09-06 12:00 | disposition home or self-care (01) | DRG 292 ==
LOC: JP.ED 04:19 → JP.MS 08:40
PROVIDERS: ADMIT Internal Medicine; ATTEND Internal Medicine
PROC: 30253N1 (ICD-10-PCS; principal; 2016-09-05)
DX: I13.0 Hypertensive heart and chronic kidney disease with heart failure and stage 1 through stage 4 chronic kidney disease, or unspecified chronic kidney disease (principal); A77.49 Other ehrlichiosis; D61.818 Other pancytopenia; D58.9 Hereditary hemolytic anemia, unspecified; C20 Malignant neoplasm of rectum; I50.9 Heart failure, unspecified; I27.2 Other secondary pulmonary hypertension; D46.9 Myelodysplastic syndrome, unspecified; R06.02 Shortness of breath; N18.9 Chronic kidney disease, unspecified; I34.2 Nonrheumatic mitral (valve) stenosis; I35.0 Nonrheumatic aortic (valve) stenosis; I25.10 Atherosclerotic heart disease of native coronary artery without angina pectoris; E78.5 Hyperlipidemia, unspecified; J44.9 Chronic obstructive pulmonary disease, unspecified; I25.2 Old myocardial infarction; G47.30 Sleep apnea, unspecified; Z95.1 Presence of aortocoronary bypass graft; R00.2 Palpitations; R35.0 Frequency of micturition; E66.01 Morbid (severe) obesity due to excess calories; Z68.37 Body mass index [BMI] 37.0-37.9, adult; Z92.21 Personal history of antineoplastic chemotherapy; Z92.3 Personal history of irradiation; Z79.82 Long term (current) use of aspirin; Z88.5 Allergy status to narcotic agent; Z88.8 Allergy status to other drugs, medicaments and biological substances; Z91.048 Other nonmedicinal substance allergy status
CPT/HCPCS: 36415; 71020 ×2; 80053; 81001; 82550; 83036; 83880; 84484; 85025; 93005; 96374; 99285; A9270; J1940; J7050; 36430; 51798; 80048; 82962; 85018; 86850; 86900; 86901; 86920; 86922; 93010; 93306; 96372; J1650; P9016

== ENCOUNTER 2016-09-26 09:38 | Emergency (ER) | payer MEDICARE, BC ==
[2016-09-26] MEDS ORDERED: Sodium Chloride 0.9% 10 ML Syringe FLUSH PRN (09:49)
[2016-09-26] MEDS ORDERED: Nitroglycerin 0.4 MG Tab.SL SL PRN (09:49)
[2016-09-26] MEDS ORDERED: Aspirin 81 MG Tab.Chew PO ONE (09:49)
--- NOTE | 2016-09-26 09:57 | EDM.PDOC ---
ED HPI GENERAL MEDICAL PROBLEM - General Stated Complaint: CHEST PAIN NAUSA ARM PAIN Time Seen by Provider: 09/26/16 09:48 Source of Information: Reports: Patient, Old Records, RN Notes Reviewed History Limitations: Reports: No Limitations - History of Present Illness INITIAL COMMENTS - FREE TEXT/NARRATIVE: 76-year-old gentleman presents emergency department day complaint of chest pain and palpitations he has radiation down his left arm he feels nauseated he feels short of breath he does have a known cardiac history with coronary artery disease and valve replacement as well as severe right heart failure. He states he went to bed feeling fine last night awoke sometime this morning with chest pains they persisted as well as palpitations on initial arrival his strip monitor showed 150 range and then he spontaneously converted to the 70-80 range sinus rhythm, his chest pain also spontaneously converted - Related Data Allergies Allergy/AdvReac Type Severity Reaction Status Date / Time adhesive tape Allergy Rash Verified 09/26/16 10:07 tiotropium Allergy Cannot Verified 09/26/16 10:07 [From Spiriva with Remember HandiHaler] codeine AdvReac Dizziness Verified 09/26/16 10:07 Home Meds: Home Meds Albuterol Sulfate [Proair Hfa] 2 puff IH Q4HR PRN 09/04/16 [History] Albuterol/Ipratropium [DuoNeb 3.0-0.5 MG/3 ML] 3 ml INH Q4HR 09/04/16 [History] Aspirin [Halfprin] 81 mg PO DAILY 09/04/16 [History] Budesonide/Formoterol [Symbicort 160-4.5 MCG] 2 puff INH BID 09/04/16 [History] Cholecalciferol (Vitamin D3) [Vitamin D3] 400 unit PO DAILY 09/04/16 [History] Cyanocobalamin (Vitamin B12) [Vitamin B12] 1,000 mcg PO DAILY 09/04/16 [History] Ferrous Sulfate [Iron] 325 mg PO DAILY 09/04/16 [History] Folic Acid 1 mg PO DAILY 09/04/16 [History] HCTZ/Triamterene [Maxzide 25-37.5 MG] 1 each PO DAILY 09/04/16 [History] Ipratropium [Atrovent HFA] 2 puff INH BID 09/04/16 [History] [place]-3/DHA/Epa/Fish Oil [[place]-3 Fish Oil 1,000 MG Sfgl] 1,000 mg PO DAILY 04/22 [History] Simvastatin [Zocor] 40 mg PO BEDTIME tablet 09/06/16 [Rx] Tamsulosin [Flomax] 0.4 mg PO PCBREAKFAST cap.er 09/06/16 [Rx] Furosemide [Lasix] 40 mg PO DAILY 09/26/16 [History] Metoprolol Tartrate [Lopressor] 12.5 mg PO BID 09/26/16 [History] Pramipexole [Mirapex] 0.125 mg PO BEDTIME 09/26/16 [History] Past Medical History Cardiovascular History: Reports: Bypass, CAD, Hypertension, [place], SOB on Exertion Respiratory History: Reports: COPD, Sleep Apnea, SOB Psychiatric History: Reports: Anxiety, Depression Endocrine/Metabolic History: Reports: Obesity/BMI 30+ Oncologic (Cancer) History: Reports: Colon Other Oncologic History: patient states "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 Sifuentes in [place]" - Infectious Disease History Infectious Disease History: Reports: Chicken Pox, Measles, Mumps - Past Surgical History Cardiovascular Surgical History: Reports: Coronary Artery Bypass GI Surgical History: Reports: Colonoscopy Social & Family History - Family History Family Medical History: Noncontributory - Tobacco Use Smoking Status *Q: Current Status Unknown Used Tobacco, but Quit: Yes Month Tobacco Last Used: 34 years ago Second Hand Smoke Exposure: No - Caffeine Use Caffeine Use: Reports: Coffee Caffeine Use Comment: daily coffee 1-2 cups and soda once a week - Recreational Drug Use Recreational Drug Use: No ED ROS GENERAL - Review of Systems Review Of Systems: See Below Constitutional: Reports: Diaphoresis. Denies: Fever, Chills HEENT: Reports: No Symptoms Respiratory: Reports: Shortness of Breath. Denies: Cough, Sputum Cardiovascular: Reports: Chest Pain, Dyspnea on Exertion, Palpitations GI/Abdominal: Reports: Nausea. Denies: Abdominal Pain, Vomiting : Reports: No Symptoms Musculoskeletal: Reports: Arm Pain Skin: Reports: No Symptoms Neurological: Reports: No Symptoms ED EXAM, GENERAL - Physical Exam Exam: See Below Exam Limited By: No Limitations General Appearance: Alert, Mild Distress Eye Exam: Bilateral Eye: Normal Inspection Head: Atraumatic, Normocephalic Neck: Normal Inspection, Supple, Non-Tender, Full Range of Motion Respiratory/Chest: No Respiratory Distress, Lungs Clear, Normal Breath Sounds, No Accessory Muscle Use Cardiovascular: Regular Rate, Rhythm, No Murmur GI/Abdominal: Soft, Non-Tender Course - Vital Signs Last Recorded V/S: Last Vital Signs Temp 98.3 F 09/26/16 10:01 Pulse 68 09/26/16 10:54 Resp 17 09/26/16 10:54 BP 112/45 L 09/26/16 10:54 Pulse Ox 93 L 09/26/16 10:54 - Orders/Labs/Meds Orders: Active Orders 24 hr Category Date Time Status Cardiac Monitoring [RC] .As Directed Care 09/26/16 09:49 Active EKG Documentation Completion [RC] ASDIRECTED Care 09/26/16 09:50 Active Peripheral IV Care [RC] . DIRECTED Care 09/26/16 09:50 Active Nitroglycerin [Nitrostat] Med 09/26/16 09:49 Active 0.4 mg SL Q5M PRN Sodium Chloride 0.9% [Saline Flush] Med 09/26/16 09:49 Active 10 ml FLUSH ASDIRECTED PRN Peripheral IV Insertion Adult [OM.PC] Stat Oth 09/26/16 09:49 Ordered Saline Lock Insert [OM.PC] Stat Oth 09/26/16 09:49 Ordered EKG 12 Lead [EK] Stat Ther 09/26/16 09:50 Ordered Medication Orders Nitroglycerin (Nitrostat) 0.4 mg SL Q5M PRN PRN Reason: Chest Pain Stop: 09/27/16 09:49 Sodium Chloride (Saline Flush) 10 ml FLUSH ASDIRECTED PRN PRN Reason: Keep Vein Open Last Admin: 09/26/16 10:18 Dose: 10 ml Labs: Laboratory Tests 09/26/16 09/26/16 09/26/16 Range/Units 10:00 10:00 10:00 WBC 2.8 L (4.5-11.0) K/uL RBC 2.38 L (4.30-5.90) M/uL Hgb 7.9 L (12.0-15.0) g/dL Hct 25.4 L (40.0-54.0) % MCV 107 H (80-98) fL MCH 33 H (27-31) pg MCHC 31 L (32-36) % Plt Count 123 L (150-400) K/uL Neut % (Auto) 81 H (36-66) % Lymph % (Auto) 11 L (24-44) % [place] % (Auto) 7 H (2-6) % Eos % (Auto) 1 L (2-4) % Baso % (Auto) 0 (0-1) % PT 10.3 (9.5-12.0) sec INR 0.96 (0.80-1.20) APTT 25.1 L (27.0-36.0) sec Sodium 138 L (140-148) mmol/L Potassium 3.4 L (3.6-5.2) mmol/L Chloride 100 (100-108) mmol/L Carbon Dioxide 30 (21-32) mmol/L Anion Gap 11.4 (5.0-14.0) mmol/L BUN 39 H (7-18) mg/dL Creatinine 1.3 (0.8-1.3) mg/dL Est Cr Clr Drug Dosing 49.85 mL/min Estimated GFR (MDRD) 54 L (>60) Glucose 115 H (74-106) mg/dL Calcium 8.8 (8.5-10.1) mg/dL Total Bilirubin 2.1 H (0.2-1.0) mg/dL AST 64 H (15-37) U/L ALT 22 D (12-78) U/L Alkaline Phosphatase 35 L (46-116) U/L CK-MB (CK-2) 0.9 (0-3.6) mg/mL Troponin I < 0.017 (0.000-0.056) ng/mL [id number] Pept 5629 H (5-125) pg/mL Total Protein 7.1 (6.4-8.2) g/dL Albumin 3.5 (3.4-5.0) g/dL Globulin 3.6 H (2.3-3.5) g/dL Albumin/Globulin Ratio 1.0 L (1.2-2.2) Meds: Medications Generic Name Dose Route Start Last Admin Trade Name Freq PRN Reason Stop Dose Admin Nitroglycerin 0.4 mg 09/26/16 09:49 Nitrostat SL 09/27/16 09:49 Q5M PRN Chest Pain Sodium Chloride 10 ml 09/26/16 09:49 09/26/16 10:18 Saline Flush FLUSH 10 ml ASDIRECTED PRN Administration Keep Vein Open Discontinued Medications Generic Name Dose Route Start Last Admin Trade Name Neena PRN Reason Stop Dose Admin Aspirin 324 mg 09/26/16 09:49 09/26/16 10:18 Aspirin PO 09/26/16 09:50 324 mg ONETIME ONE Administration Departure - Departure Time of Disposition: 11:47 Disposition: Admitted As Inpatient 68 Condition: Fair Clinical Impression: Chest pain Qualifiers: Chest pain type: unspecified Qualified Code(s): R07.9 - Chest pain, unspecified - My Orders Last 24 Hours: My Active Orders 09/26/16 09:49 Cardiac Monitoring [RC] .As Directed Nitroglycerin [Nitrostat] 0.4 mg SL Q5M PRN Sodium Chloride 0.9% [Saline Flush] 10 ml FLUSH ASDIRECTED PRN Peripheral IV Insertion Adult [OM.PC] Stat Saline Lock Insert [OM.PC] Stat 09/26/16 09:50 EKG Documentation Completion [RC] ASDIRECTED Peripheral IV Care [RC] . DIRECTED EKG 12 Lead [EK] Stat - Assessment/Plan Last 24 Hours: My Active Orders 09/26/16 09:49 Cardiac Monitoring [RC] .As Directed Nitroglycerin [Nitrostat] 0.4 mg SL Q5M PRN Sodium Chloride 0.9% [Saline Flush] 10 ml FLUSH ASDIRECTED PRN Peripheral IV Insertion Adult [OM.PC] Stat Saline Lock Insert [OM.PC] Stat 09/26/16 09:50 EKG Documentation Completion [RC] ASDIRECTED Peripheral IV Care [RC] . DIRECTED EKG 12 Lead [EK] Stat Plan: Assessment Acuity = acute Site and laterality = chest pain complicated patient with known history of coronary artery disease and leukemia Etiology = unclear etiology Manifestations = pain, dyspnea, diaphoresis, nausea all resolved Location of injury = Home Lab values = WBC low at 2.8 consistent with a leukopenia hemoglobin low at 7.9 consistent with a macro chromic anemia platelets low at 123 consistent thrombocytopenia combination is pancytopenic sodium low at 138 consistent hyponatremialow at 3.4 consistent with hypokalemia bilirubin elevated at 2.1 consistent with hyperbilirubinemia troponin and CK-MB were within normal limits proBNP elevated at 5629 consistent with fluid overload probably close to baseline EKG demonstrates a left bundle branch block chest x-ray shows no acute process Plan Called discussed case with Dr. Russ kindly accepted the patient in transport he'll be transported via EMS ground, he has received aspirin 325 mg no other treatments provided Patient was in agreement with the plan all questions were answered,. This note was dictated using [employer] voice recognition software please call with any questions.
[2016-09-26 10:55] VITALS: BP 112/45
--- NOTE | 2016-09-26 10:58 | CR ---
Portable chest Comparison: 04 September 2016. Intact sternal wires are demonstrated. There is cardiac enlargement. The vascular structures are wit hin normal limits. There is left basilar atelectasis. No acute infiltrates or effusions are demonstr ated. Impression: 1. No acute findings.
== END 2016-09-26 13:13 | disposition critical access hospital (66) ==
LOC: JP.ED 09:38
DX: R07.9 Chest pain, unspecified (principal); I25.10 Atherosclerotic heart disease of native coronary artery without angina pectoris; I10 Essential (primary) hypertension; I25.2 Old myocardial infarction; J44.9 Chronic obstructive pulmonary disease, unspecified; E66.9 Obesity, unspecified; C95.90 Leukemia, unspecified not having achieved remission; Z95.1 Presence of aortocoronary bypass graft; Z88.8 Allergy status to other drugs, medicaments and biological substances; Z88.5 Allergy status to narcotic agent; Z91.048 Other nonmedicinal substance allergy status; Z79.82 Long term (current) use of aspirin; R06.02 Shortness of breath
CPT/HCPCS: 36415; 71010; 80053; 82553; 83880; 84484; 85025; 85610; 85730; 93005; 93010; 99285; A9270; J7050

== ENCOUNTER 2017-06-04 14:21 | Inpatient (IN) | payer MEDICARE, BC ==
[2017-06-04] MEDS ORDERED: Sodium Chloride 0.9% 10 ML Syringe FLUSH PRN (15:52)
[2017-06-04] MEDS ORDERED: Metolazone 2.5 MG Tab PO ONE (15:54)
[2017-06-04] MEDS ORDERED: Furosemide 40 MG/4 ML VIAL IVPUSH ONE ×2 (15:55→17:37)
--- NOTE | 2017-06-04 17:22 | PCM.HP ---
H&P History of Present Illness - General Date of Service: 06/04/17 Source of Information: Patient, EMS History Limitations: Reports: Respiratory Distress - History of Present Illness Initial Comments - Free Text/Narative: Increasing shortness of breath unable to lay down flat because of shortness of breath. Having generalized weakness. Having decreased urine flow with increased weight. Onset of Symptoms: Reports: Gradual Duration of Symptoms: Reports: Week(s): Improves with: Reports: None Worsens with: Reports: Breathing, Movement Associated Symptoms: Reports: Shortness of Breath, Weakness Generalized Pain Score (Numeric/FACES): 2 - Related Data Allergies/Adverse Reactions: Allergies Allergy/AdvReac Type Severity Reaction Status Date / Time adhesive tape Allergy Rash Verified 06/04/17 18:38 tiotropium Allergy Cannot Verified 06/04/17 18:38 [From Spiriva with Remember [facility]iHaler] codeine AdvReac Dizziness Verified 06/04/17 18:38 Home Medications: Home Meds Albuterol Sulfate [Proair Hfa] 2 puff IH Q4HR PRN 09/04/16 [History] Albuterol/Ipratropium [DuoNeb 3.0-0.5 MG/3 ML] 3 ml INH Q4HR 09/04/16 [History] Aspirin [Halfprin] 81 mg PO DAILY 09/04/16 [History] Budesonide/Formoterol [Symbicort 160-4.5 MCG] 2 puff INH BID 09/04/16 [History] Cholecalciferol (Vitamin D3) [Vitamin D3] 400 unit PO DAILY 09/04/16 [History] Cyanocobalamin (Vitamin B12) [Vitamin B12] 1,000 mcg PO DAILY 09/04/16 [History] Ferrous Sulfate [Iron] 325 mg PO DAILY 09/04/16 [History] Folic Acid 1 mg PO DAILY 09/04/16 [History] Ipratropium [Atrovent HFA] 2 puff INH BID 09/04/16 [History] [place]-3/DHA/Epa/Fish Oil [[place]-3 Fish Oil 1,000 MG Sfgl] 1,000 mg PO DAILY 04/22 [History] Simvastatin [Zocor] 40 mg PO BEDTIME tablet 09/06/16 [Rx] Tamsulosin [Flomax] 0.4 mg PO PCBREAKFAST cap.er 09/06/16 [Rx] Furosemide [Lasix] 40 mg PO BID 09/26/16 [History] Metoprolol Tartrate [Lopressor] 12.5 mg PO BID 09/26/16 [History] Pramipexole [Mirapex] 0.125 mg PO BEDTIME 09/26/16 [History] Levalbuterol Tartrate [Xopenex HFA] 2 puff INH BID 06/04/17 [History] Potassium Chloride 1 tab PO DAILY 06/04/17 [History] Past Medical History Cardiovascular History: Reports: Bypass, CAD, Hypertension, [place], SOB on Exertion Respiratory History: Reports: COPD, Sleep Apnea, SOB Genitourinary History: Reports: BPH Psychiatric History: Reports: Anxiety, Depression Endocrine/Metabolic History: Reports: Obesity/BMI 30+ Hematologic History: Reports: Anemia Oncologic (Cancer) History: Reports: Colon Other Oncologic History: patient states "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 Sifuentes in [place]" - Infectious Disease History Infectious Disease History: Reports: Chicken Pox, Measles, Mumps - Past Surgical History Cardiovascular Surgical History: Reports: Coronary Artery Bypass GI Surgical History: Reports: Colonoscopy Social & Family History - Family History Family Medical History: Noncontributory - Tobacco Use Smoking Status *Q: Never Smoker Used Tobacco, but Quit: Yes Month/Year Tobacco Last Used: 34 years ago Second Hand Smoke Exposure: No - Caffeine Use Caffeine Use: Reports: Coffee Caffeine Use Comment: daily coffee 1-2 cups and soda once a week - Recreational Drug Use Recreational Drug Use: No H&P Review of Systems - Review of Systems: Review Of Systems: See Below General: Reports: Weakness HEENT: Reports: No Symptoms Pulmonary: Reports: Shortness of Breath Cardiovascular: Reports: Dyspnea on Exertion Gastrointestinal: Reports: No Symptoms Genitourinary: Reports: Frequency Musculoskeletal: Reports: No Symptoms Skin: Reports: No Symptoms Psychiatric: Reports: No Symptoms Neurological: Reports: No Symptoms Exam - Exam Exam: See Below - Vital Signs Vital Signs: Last Vital Signs Temp 95.8 F 06/04/17 14:41 Pulse 62 06/04/17 17:10 Resp 16 06/04/17 17:10 BP 138/35 L 06/04/17 17:10 Pulse Ox 96 06/04/17 17:10 Weight: 231 lb - Exam General: Alert, Oriented, 4 Neck: Supple, Trachea Midline, 2 Lungs: Clear to Auscultation, Normal Respiratory Effort Cardiovascular: Regular Rate, Regular Rhythm GI/Abdominal Exam: Normal Bowel Sounds, Soft, Non-Tender, No Organomegaly, No Distention, No Abnormal Bruit, No Mass, Pelvis Stable Back Exam: Normal Inspection, Full Range of Motion, NT Extremities: Pedal Edema, Other (+3 edema) Peripheral Pulses: 1+: Radial (L), Radial (R) Skin: Warm, Dry, Intact Neuro Extensive - Mental Status: Alert, Oriented x3, Normal Mood/Affect Neuro Extensive - Motor, Sensory, Reflexes: CN II-XII Intact DTR: 1+: Bicep (L), Bicep (R) - Patient Data Lab Results Last 24 hrs: Laboratory Results - last 24 hr 06/04/17 06/04/17 Range/Units 15:52 15:52 WBC 1.6 L (4.5-11.0) K/uL RBC 2.15 L (4.30-5.90) M/uL Hgb 7.7 L (12.0-15.0) g/dL Hct 25.3 L (40.0-54.0) % MCV 118 H (80-98) fL MCH 36 H (27-31) pg MCHC 30 L (32-36) % Plt Count 51 L (150-400) K/uL Neut % (Auto) 64 (36-66) % Lymph % (Auto) 28 (24-44) % [place] % (Auto) 6 (2-6) % Eos % (Auto) 1 L (2-4) % Baso % (Auto) 1 (0-1) % Sodium 139 L (140-148) mmol/L Potassium 4.0 (3.6-5.2) mmol/L Chloride 99 L (100-108) mmol/L Carbon Dioxide 31 (21-32) mmol/L Anion Gap 13.0 (5.0-14.0) mmol/L BUN 63 H D (7-18) mg/dL Creatinine 1.6 H (0.8-1.3) mg/dL Est Cr Clr Drug Dosing 39.89 mL/min Estimated GFR (MDRD) 42 L (>60) Glucose 79 (74-106) mg/dL Calcium 8.6 (8.5-10.1) mg/dL Total Bilirubin 3.3 H D (0.2-1.0) mg/dL AST 46 H (15-37) U/L ALT 26 (12-78) U/L Alkaline Phosphatase 46 (46-116) U/L Total Protein 6.8 (6.4-8.2) g/dL Albumin 3.6 (3.4-5.0) g/dL Globulin 3.2 (2.3-3.5) g/dL Albumin/Globulin Ratio 1.1 L (1.2-2.2) Result Diagrams: 06/04/17 15:52 06/04/17 15:52 Problem List Initiated/Reviewed/Updated: Yes Orders Last 24hrs: Active Orders 24 hr Category Date Time Status Chest 1V Frontal [CR] Urgent Exams 06/04/17 15:52 Taken Sodium Chloride 0.9% [Saline Flush] Med 06/04/17 15:52 Active 10 ml FLUSH ASDIRECTED PRN Saline Lock Insert [OM.PC] Urgent Oth 06/04/17 15:52 Ordered Medication Orders Sodium Chloride (Saline Flush) 10 ml FLUSH ASDIRECTED PRN PRN Reason: Keep Vein Open Last Admin: 06/04/17 16:18 Dose: 10 ml Assessment/Plan Comment:: Assessment/Plan: #1. CHF with valvular dysfunction: Will give diuretics and balance fluid. #2. ASHD: Stable #3. Anemia: History of MDS. Will give 1 unit of blood and monitor fluid and vitals closely. #4. Mitral valve: Dysfunction. History of Mitral valve Repair #5. History of Pulmonary hypertension #6. S/P CABS: Will transfer to [place] for further cardiac testing Monday.
[2017-06-04] MEDS ORDERED: Albuterol 8 GM Inhaler INH PRN (17:29)
--- NOTE | 2017-06-04 17:31 | EDM.PDOC ---
ED HPI GENERAL MEDICAL PROBLEM - General Chief Complaint: Respiratory Problem Stated Complaint: MEDICAL VIA AMB Time Seen by Provider: 06/04/17 15:42 Source of Information: Reports: Patient, EMS History Limitations: Reports: Respiratory Distress - History of Present Illness INITIAL COMMENTS - FREE TEXT/NARRATIVE: This gentleman comes in because of swelling and shortness of breath. He has a history of leukemia and anemia. He's had a lot of problems with fluid retention recently there've been a number of changes in his diuretics recently initially he was on Lasix that doesn't seem to be working he was taken off of that put on Bumex and spironolactone for a few days. After that didn't seem to be working well Dr. Rawls added some metolazone. He may have gotten a little bit dry from that so the doctor in [place] cut his Bumex in half. He said that now he's off of the Bumex and just taking Lasix twice a day. That doesn't seem to be helping and he's putting on a lot of fluid. Today he complains of some shortness of breath. He thinks he's probably more anemic now Onset: Gradual Duration: Week(s): Improves with: Reports: None Worsens with: Reports: Breathing, Movement Associated Symptoms: Reports: Shortness of Breath, Weakness - Related Data Allergies Allergy/AdvReac Type Severity Reaction Status Date / Time adhesive tape Allergy Rash Verified 06/04/17 14:29 tiotropium Allergy Cannot Verified 06/04/17 14:29 [From Spiriva with Remember [facility]] codeine AdvReac Dizziness Verified 06/04/17 14:29 Home Meds: Home Meds Albuterol Sulfate [Proair Hfa] 2 puff IH Q4HR PRN 09/04/16 [History] Albuterol/Ipratropium [DuoNeb 3.0-0.5 MG/3 ML] 3 ml INH Q4HR 09/04/16 [History] Aspirin [Halfprin] 81 mg PO DAILY 09/04/16 [History] Budesonide/Formoterol [Symbicort 160-4.5 MCG] 2 puff INH BID 09/04/16 [History] Cholecalciferol (Vitamin D3) [Vitamin D3] 400 unit PO DAILY 09/04/16 [History] Cyanocobalamin (Vitamin B12) [Vitamin B12] 1,000 mcg PO DAILY 09/04/16 [History] Ferrous Sulfate [Iron] 325 mg PO DAILY 09/04/16 [History] Folic Acid 1 mg PO DAILY 09/04/16 [History] Ipratropium [Atrovent HFA] 2 puff INH BID 09/04/16 [History] [place]-3/DHA/Epa/Fish Oil [[place]-3 Fish Oil 1,000 MG Sfgl] 1,000 mg PO DAILY 04/22 [History] Simvastatin [Zocor] 40 mg PO BEDTIME tablet 09/06/16 [Rx] Tamsulosin [Flomax] 0.4 mg PO PCBREAKFAST cap.er 09/06/16 [Rx] Furosemide [Lasix] 40 mg PO BID 09/26/16 [History] Metoprolol Tartrate [Lopressor] 12.5 mg PO BID 09/26/16 [History] Pramipexole [Mirapex] 0.125 mg PO BEDTIME 09/26/16 [History] Levalbuterol Tartrate [Xopenex HFA] 2 puff INH BID 06/04/17 [History] Potassium Chloride 06/04/17 [History] Past Medical History Cardiovascular History: Reports: Bypass, CAD, Hypertension, PA, SOB on Exertion Respiratory History: Reports: COPD, Sleep Apnea, SOB Genitourinary History: Reports: BPH Psychiatric History: Reports: Anxiety, Depression Endocrine/Metabolic History: Reports: Obesity/BMI 30+ Hematologic History: Reports: Anemia Oncologic (Cancer) History: Reports: Colon Other Oncologic History: patient states "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 Sifuentes in [place]" - Infectious Disease History Infectious Disease History: Reports: Chicken Pox, Measles, Mumps - Past Surgical History Cardiovascular Surgical History: Reports: Coronary Artery Bypass GI Surgical History: Reports: Colonoscopy Social & Family History - Family History Family Medical History: Noncontributory - Tobacco Use Smoking Status *Q: Never Smoker Used Tobacco, but Quit: Yes Month/Year Tobacco Last Used: 34 years ago Second Hand Smoke Exposure: No - Caffeine Use Caffeine Use: Reports: Coffee Caffeine Use Comment: daily coffee 1-2 cups and soda once a week - Recreational Drug Use Recreational Drug Use: No ED ROS GENERAL - Review of Systems Review Of Systems: See Below Constitutional: Reports: Weakness HEENT: Reports: No Symptoms Respiratory: Reports: Shortness of Breath Cardiovascular: Reports: No Symptoms Endocrine: Reports: No Symptoms GI/Abdominal: Reports: No Symptoms : Reports: No Symptoms Musculoskeletal: Reports: No Symptoms Skin: Reports: Pallor Neurological: Reports: No Symptoms Psychiatric: Reports: No Symptoms Hematologic/Lymphatic: Reports: Anemia ED EXAM, GENERAL - Physical Exam Exam: See Below Exam Limited By: No Limitations General Appearance: Alert, Mild Distress, Other (He is chronically ill appearing and looks very pale and probably jaundiced. This gives his complexion is somewhat greenish cast) Eye Exam: Bilateral Eye: Normal Inspection Throat/Mouth: Normal Inspection Head: Atraumatic Neck: Normal Inspection Respiratory/Chest: Lungs Clear, Normal Breath Sounds. No: Decreased Breath Sounds Cardiovascular: Regular Rate, Rhythm, No Murmur, Other (He has about a 2-3+). No: No Edema Peripheral Pulses: 2+: Radial (L), Radial (R) GI/Abdominal: Soft, Non-Tender Extremities: Pedal Edema Neurological: Alert, Oriented Course - Vital Signs Last Recorded V/S: Last Vital Signs Temp 35.4 C 06/04/17 14:41 Pulse 62 06/04/17 17:10 Resp 16 06/04/17 17:10 BP 138/35 L 06/04/17 17:10 Pulse Ox 96 06/04/17 17:10 - Orders/Labs/Meds Orders: Active Orders 24 hr Category Date Time Status Patient Status [ADT] Routine ADT 06/04/17 17:23 Active Ambulate [RC] QID Care 06/04/17 17:23 Active Height and Weight [RC] UPON Care 06/04/17 17:23 Active Intake and Output [RC] QSHIFT Care 06/04/17 17:27 Active Oxygen Therapy [RC] PRN Care 06/04/17 17:23 Active Up With Assistance [RC] ASDIRECTED Care 06/04/17 17:23 Active Up ad Davina [RC] ASDIRECTED Care 06/04/17 17:23 Active Up to Chair [RC] QID Care 06/04/17 17:23 Active VTE/DVT Education [RC] Per Unit Routine Care 06/04/17 17:23 Active Vital Signs [RC] Q4H Care 06/04/17 17:23 Active 2 Gram Sodium Diet [DIET] Diet 06/05/17 Breakfast Active Chest 1V Frontal [CR] Urgent Exams 06/04/17 15:52 Taken BASIC METABOLIC PANEL,BMP [CHEM] AM Lab 06/05/17 05:11 Ordered CBC WITH AUTO DIFF [HEME] AM Lab 06/05/17 05:11 Ordered Sodium Chloride 0.9% [Saline Flush] Med 06/04/17 15:52 Active 10 ml FLUSH ASDIRECTED PRN Saline Lock Insert [OM.PC] Urgent Oth 06/04/17 15:52 Ordered Sequential Compression Device [OM.PC] Per Unit Routine Oth 06/04/17 17:27 Ordered Resuscitation Status Routine Resus Stat 06/04/17 17:23 Ordered Medication Orders Sodium Chloride (Saline Flush) 10 ml FLUSH ASDIRECTED PRN PRN Reason: Keep Vein Open Last Admin: 06/04/17 16:18 Dose: 10 ml Labs: Laboratory Tests 06/04/17 06/04/17 Range/Units 15:52 15:52 WBC 1.6 L (4.5-11.0) K/uL RBC 2.15 L (4.30-5.90) M/uL Hgb 7.7 L (12.0-15.0) g/dL Hct 25.3 L (40.0-54.0) % MCV 118 H (80-98) fL MCH 36 H (27-31) pg MCHC 30 L (32-36) % Plt Count 51 L (150-400) K/uL Neut % (Auto) 64 (36-66) % Lymph % (Auto) 28 (24-44) % [place] % (Auto) 6 (2-6) % Eos % (Auto) 1 L (2-4) % Baso % (Auto) 1 (0-1) % Sodium 139 L (140-148) mmol/L Potassium 4.0 (3.6-5.2) mmol/L Chloride 99 L (100-108) mmol/L Carbon Dioxide 31 (21-32) mmol/L Anion Gap 13.0 (5.0-14.0) mmol/L BUN 63 H D (7-18) mg/dL Creatinine 1.6 H (0.8-1.3) mg/dL Est Cr Clr Drug Dosing 39.89 mL/min Estimated GFR (MDRD) 42 L (>60) Glucose 79 (74-106) mg/dL Calcium 8.6 (8.5-10.1) mg/dL Total Bilirubin 3.3 H D (0.2-1.0) mg/dL AST 46 H (15-37) U/L ALT 26 (12-78) U/L Alkaline Phosphatase 46 (46-116) U/L Total Protein 6.8 (6.4-8.2) g/dL Albumin 3.6 (3.4-5.0) g/dL Globulin 3.2 (2.3-3.5) g/dL Albumin/Globulin Ratio 1.1 L (1.2-2.2) Meds: Medications Generic Name Dose Route Start Last Admin Trade Name Freq PRN Reason Stop Dose Admin Sodium Chloride 10 ml 06/04/17 15:52 06/04/17 16:18 Saline Flush FLUSH 10 ml ASDIRECTED PRN Administration Keep Vein Open Discontinued Medications Generic Name Dose Route Start Last Admin Trade Name Freq PRN Reason Stop Dose Admin Furosemide 40 mg 06/04/17 15:55 06/04/17 16:18 Lasix IVPUSH 06/04/17 15:56 40 mg ONETIME ONE Administration Metolazone 2.5 mg 06/04/17 15:54 06/04/17 16:14 Zaroxolyn PO 06/04/17 15:55 2.5 mg ONETIME ONE Administration - Re-Assessments/Exams Free Text/Narrative Re-Assessment/Exam: 06/04/17 17:31 Chest x-ray shows generally a normal heart size. There is cephalization but no obvious pulmonary edema. An IV was started on this gentleman and he received Lasix 40 mg IV and metolazone 2.5 mg IV. His blood pressure at that time was approximately 120 systolic. I spoke with Dr. Rawls shortly thereafter and he'll begin to see him as soon as we get his labs back. When all labs were back I called Dr. Rawls again and he promptly arrived to examine the patient. Departure - Departure Time of Disposition: 17:33 Disposition: Admitted As Inpatient 68 Condition: Fair Clinical Impression: Anemia, Fluid overload, Leukemia - Discharge Information Referrals: Hiro Rawls Sr, MD [Primary Care Provider] - Forms: ED Department Discharge - My Orders Last 24 Hours: My Active Orders 06/04/17 15:52 Chest 1V Frontal [CR] Urgent Sodium Chloride 0.9% [Saline Flush] 10 ml FLUSH ASDIRECTED PRN Saline Lock Insert [OM.PC] Urgent - Assessment/Plan Last 24 Hours: My Active Orders 06/04/17 15:52 Chest 1V Frontal [CR] Urgent Sodium Chloride 0.9% [Saline Flush] 10 ml FLUSH ASDIRECTED PRN Saline Lock Insert [OM.PC] Urgent
[2017-06-04] MEDS ORDERED: Furosemide 40 MG/4 ML VIAL ONE (20:58)
[2017-06-04] MEDS ORDERED: Pramipexole 0.5 MG Tab PO SCH (21:00)
[2017-06-04] MEDS: Hydrochlorothiazide 25 MG Tab PO SCH (21:00)
[2017-06-04] MEDS ORDERED: Formoterol/Mometasone 200-5 MCG 8.8 GM Inhaler IH SCH (21:00)
[2017-06-04] MEDS: Spironolactone 25 MG Tab PO SCH (21:00)
[2017-06-04] MEDS: Albuterol/Ipratropium 3.0-0.5 MG/3 ML Neb Soln INH SCH ×2 (21:12→22:40)
[2017-06-04] MEDS: Simvastatin 20 MG Tab PO SCH (22:35)
[2017-06-04] MEDS: Metoprolol Tartrate 25 MG Tab PO SCH (22:35)
[2017-06-04] MEDS: Ipratropium 0.02% 0.5 MG/2.5 ML Neb Soln NEB SCH (22:48)
[2017-06-05] MEDS ORDERED: Pramipexole 0.5 MG Tab PO ONE (01:29)
[2017-06-05] MEDS: Albuterol/Ipratropium 3.0-0.5 MG/3 ML Neb Soln INH SCH ×3 (02:42→09:46)
[2017-06-05] MEDS: Formoterol/Mometasone 200-5 MCG 8.8 GM Inhaler IH SCH ×2 (07:53→21:59)
[2017-06-05] MEDS: Ipratropium 0.02% 0.5 MG/2.5 ML Neb Soln NEB SCH (07:55)
[2017-06-05] MEDS: Spironolactone 25 MG Tab PO SCH (09:14)
[2017-06-05] MEDS: Cholecalciferol (Vitamin D3) 1,000 Unit Tab PO SCH (09:15)
[2017-06-05] MEDS: Cyanocobalamin (Vitamin B12) 1,000 MCG Tab PO SCH (09:15)
[2017-06-05] MEDS: Ferrous Sulfate 325 MG Tab PO SCH (09:15)
[2017-06-05] MEDS: Folic Acid 1 MG Tab PO SCH (09:15)
[2017-06-05] MEDS: Fish Oil/Omega-3 Fatty Acids 1 Gm Cap PO SCH (09:15)
[2017-06-05] MEDS: Metoprolol Tartrate 25 MG Tab PO SCH ×2 (09:15→22:04)
[2017-06-05] MEDS: Tamsulosin 0.4 MG Cap.ER PO SCH (09:17)
[2017-06-05] MEDS: Aspirin 81 MG Tab.EC PO SCH (09:17)
[2017-06-05] MEDS: Hydrochlorothiazide 25 MG Tab PO SCH (09:17)
--- NOTE | 2017-06-05 10:17 | CR ---
Chest 1V Frontal HISTORY: pain COMPARISON: 05/09/2017 FINDINGS: Portable chest, 1602 hours. No acute infiltrate is identified. Mild cardiomegaly is stable. Old median sternotomy changes and pro sthetic heart valve are again noted. No vascular redistribution or pleural fluid can be seen. Bony st ructures and soft tissues are unremarkable. IMPRESSION: Mild cardiomegaly without evidence for decompensation. No acute chest abnormality or significant inte rval change is identified.
--- NOTE | 2017-06-05 18:16 | PCM.PN ---
- General Info Date of Service: 06/05/17 Functional Status: Reports: Pain Controlled - Review of Systems General: Reports: Weakness, Fatigue HEENT: Reports: No Symptoms Pulmonary: Reports: Shortness of Breath, Cough Cardiovascular: Reports: Dyspnea on Exertion, Edema Gastrointestinal: Reports: No Symptoms Genitourinary: Reports: No Symptoms Musculoskeletal: Reports: No Symptoms Skin: Reports: No Symptoms Neurological: Reports: No Symptoms Psychiatric: Reports: No Symptoms - Patient Data Vitals - Most Recent: Last Vital Signs Temp 98.7 F 06/05/17 14:41 Pulse 80 06/05/17 14:41 Resp 16 06/05/17 14:41 BP 129/44 L 06/05/17 14:41 Pulse Ox 91 L 06/05/17 14:41 Weight - Most Recent: 246 lb 0.01 oz I&O - Last 24 Hours: Intake & Output 06/05/17 06/05/17 06/05/17 06:59 14:59 22:59 Intake Total 0 1020 640 Output Total 1525 1250 250 Balance -1525 -230 390 Lab Results Last 24 Hours: Laboratory Results - last 24 hr 06/04/17 06/04/17 06/04/17 Range/Units 17:30 17:33 17:35 WBC (4.5-11.0) K/uL RBC (4.30-5.90) M/uL Hgb (12.0-15.0) g/dL Hct (40.0-54.0) % MCV (80-98) fL MCH (27-31) pg MCHC (32-36) % Plt Count (150-400) K/uL Neut % (Auto) (36-66) % Lymph % (Auto) (24-44) % Sac % (Auto) (2-6) % Eos % (Auto) (2-4) % Baso % (Auto) (0-1) % PT 11.9 (9.5-12.0) sec INR 1.11 (0.80-1.20) Sodium (140-148) mmol/L Potassium (3.6-5.2) mmol/L Chloride (100-108) mmol/L Carbon Dioxide (21-32) mmol/L Anion Gap (5.0-14.0) mmol/L BUN (7-18) mg/dL Creatinine (0.8-1.3) mg/dL Est Cr Clr Drug Dosing mL/min Estimated GFR (MDRD) (>60) Glucose (74-106) mg/dL Calcium (8.5-10.1) mg/dL Vitamin B12 895 (193-986) pg/ml Folate (8.6-58.9) ng/ml Blood Type O POSITIVE Gel Antibody Screen Negative Crossmatch See Detail 06/04/17 06/05/17 06/05/17 Range/Units 17:35 05:11 05:11 WBC 1.4 L (4.5-11.0) K/uL RBC 2.33 L (4.30-5.90) M/uL Hgb 8.0 L (12.0-15.0) g/dL Hct 26.0 L (40.0-54.0) % MCV 112 H (80-98) fL MCH 34 H (27-31) pg MCHC 31 L (32-36) % Plt Count 46 L (150-400) K/uL Neut % (Auto) 67 H (36-66) % Lymph % (Auto) 27 (24-44) % Sac % (Auto) 5 (2-6) % Eos % (Auto) 1 L (2-4) % Baso % (Auto) 1 (0-1) % PT (9.5-12.0) sec INR (0.80-1.20) Sodium 138 L (140-148) mmol/L Potassium 3.4 L (3.6-5.2) mmol/L Chloride 97 L (100-108) mmol/L Carbon Dioxide 30 (21-32) mmol/L Anion Gap 14.4 H (5.0-14.0) mmol/L BUN 64 H (7-18) mg/dL Creatinine 1.7 H (0.8-1.3) mg/dL Est Cr Clr Drug Dosing 38.77 mL/min Estimated GFR (MDRD) 39 L (>60) Glucose 120 H (74-106) mg/dL Calcium 8.9 (8.5-10.1) mg/dL Vitamin B12 (193-986) pg/ml Folate > 20.0 (8.6-58.9) ng/ml Blood Type Gel Antibody Screen Crossmatch Med Orders - Current: Current Medications Aspirin (Halfprin) 81 mg PO DAILY JOSE CARLOS Last Admin: 06/05/17 09:17 Dose: 81 mg Cholecalciferol (Vitamin D3) 1,000 units PO DAILY [facility] Last Admin: 06/05/17 09:15 Dose: 1,000 units Cyanocobalamin (Vitamin B12) 1,000 mcg PO DAILY [facility] Last Admin: 06/05/17 09:15 Dose: 1,000 mcg Ferrous Sulfate (Ferrous Sulfate) 325 mg PO DAILY [facility] Last Admin: 06/05/17 09:15 Dose: 325 mg Fish Oil (Fish Oil) 1,000 gm PO DAILY [facility] Last Admin: 06/05/17 09:15 Dose: 1,000 gm Folic Acid (Folic Acid) 1 mg PO DAILY [facility] Last Admin: 06/05/17 09:15 Dose: 1 mg Guaifenesin/Dextromethorphan (Robitussin Dm) 10 ml PO Q4H PRN PRN Reason: Cough Hydrochlorothiazide (Hydrochlorothiazide) 25 mg PO DAILY [facility] Last Admin: 06/05/17 09:17 Dose: 25 mg Levalbuterol HCl (Xopenex Hfa) 0 gm INH BIDRT [facility] Metoprolol Tartrate (Lopressor) 12.5 mg PO BID [facility] Last Admin: 06/05/17 09:15 Dose: 12.5 mg Mometasone Furoate/Formoterol Fumar (Dulera 200-5 Mcg) 2 puff IH BIDRT [facility] Last Admin: 06/05/17 07:53 Dose: 2 puff Potassium Chloride (Klor-Con M20) 20 meq PO BID [facility] Pramipexole Dihydrochloride (Mirapex) 0.125 mg PO BEDTIME [facility] Simvastatin (Zocor) 40 mg PO BEDTIME [facility] Last Admin: 06/04/17 22:35 Dose: 40 mg Sodium Chloride (Saline Flush) 10 ml FLUSH ASDIRECTED PRN PRN Reason: Keep Vein Open Last Admin: 06/04/17 16:18 Dose: 10 ml Spironolactone (Aldactone) 25 mg PO DAILY [facility] Last Admin: 06/05/17 09:14 Dose: 25 mg Tamsulosin HCl (Flomax) 0.4 mg PO PCBREAKFAST [facility] Last Admin: 06/05/17 09:17 Dose: 0.4 mg Discontinued Medications Albuterol/Ipratropium (Duoneb 3.0-0.5 Mg/3 Ml) 3 ml INH Q4H [facility] Last Admin: 06/05/17 09:46 Dose: 3 ml Furosemide (Lasix) 40 mg IVPUSH ONETIME ONE Stop: 06/04/17 15:56 Last Admin: 06/04/17 16:18 Dose: 40 mg Furosemide (Lasix) 40 mg IVPUSH ONETIME ONE Stop: 06/04/17 17:38 Last Admin: 06/04/17 21:00 Dose: 40 mg Furosemide (Lasix) Confirm Administered Dose 40 mg .ROUTE .STK-MED ONE Stop: 06/04/17 20:59 Last Admin: 06/04/17 21:12 Dose: Not Given Ipratropium [place] (Atrovent) 0.5 mg NEB BIDRT [facility] Last Admin: 06/05/17 07:55 Dose: Not Given Metolazone (Zaroxolyn) 2.5 mg PO ONETIME ONE Stop: 06/04/17 15:55 Last Admin: 06/04/17 16:14 Dose: 2.5 mg Mometasone Furoate/Formoterol Fumar (Dulera 200-5 Mcg) 2 puff IH BID [facility] Last Admin: 06/04/17 22:30 Dose: 2 puff Non-Formulary Medication (Ipratropium [Atrovent Hfa]) 2 puff INH BID JOSE CARLOS Pramipexole Dihydrochloride (Mirapex) 0.125 mg PO BEDTIME [facility] Last Admin: 06/04/17 22:34 Dose: 0.125 mg Pramipexole Dihydrochloride (Mirapex) 0.125 mg PO ONETIME ONE Stop: 06/05/17 01:30 Last Admin: 06/05/17 01:50 Dose: 0.125 mg - Exam General: Alert, Oriented Neck: Supple Lungs: Clear to Auscultation, Normal Respiratory Effort Cardiovascular: Regular Rate, Regular Rhythm GI/Abdominal Exam: Normal Bowel Sounds, Soft, Non-Tender, No Organomegaly, No Distention, No Abnormal Bruit, No Mass, Pelvis Stable (Male) Exam: No Hernia, Normal Inspection, Normal Prostate, Circumcised Extremities: Pedal Edema Peripheral Pulses: 1+: Radial (L), Radial (R) Skin: Warm, Dry, Intact Neurological: No New Focal Deficit Psy/Mental Status: Alert, Normal Affect, Normal Mood - Problem List Review Problem List Initiated/Reviewed/Updated: Yes - My Orders Last 24 Hours: My Active Orders 06/04/17 17:23 Patient Status [ADT] Routine Ambulate [RC] QID Height and Weight [RC] UPON Oxygen Therapy [RC] PRN Up With Assistance [RC] ASDIRECTED Up ad Davina [RC] ASDIRECTED Up to Chair [RC] QID VTE/DVT Education [RC] Per Unit Routine Vital Signs [RC] Q4H Resuscitation Status Routine 06/04/17 17:27 Intake and Output [RC] QSHIFT Sequential Compression Device [OM.PC] Per Unit Routine 06/04/17 18:45 Transfuse Red Blood Cells [COMM] Stat 06/04/17 19:00 Hydrochlorothiazide 25 mg PO DAILY Spironolactone [Aldactone] 25 mg PO DAILY 06/04/17 21:00 Metoprolol Tartrate [Lopressor] 12.5 mg PO BID Simvastatin [Zocor] 40 mg PO BEDTIME 06/04/17 22:16 RT Post Treatment Assessment [RC] Click to Edit 06/05/17 07:30 Mometasone/Formoterol [Dulera 200-5 MCG] 2 puff IH BIDRT 06/05/17 09:00 Aspirin [Halfprin] 81 mg PO DAILY Cholecalciferol (Vitamin D3) [Vitamin D3] 1,000 units PO DAILY Cyanocobalamin (Vitamin B12) [Vitamin B12] 1,000 mcg PO DAILY Ferrous Sulfate 325 mg PO DAILY Fish Oil/[place]-3 Fatty Acids [Fish Oil] 1,000 gm PO DAILY Folic Acid 1 mg PO DAILY Tamsulosin [Flomax] 0.4 mg PO PCBREAKFAST 06/05/17 18:05 RT Sputum Induction [RC] Click to Edit 06/05/17 18:07 Dextromethorphan/guaiFENesin [Robitussin DM] 10 ml PO Q4H PRN 06/05/17 18:15 Potassium Chloride [Klor-Con M20] 20 meq PO BID 06/05/17 21:00 Levalbuterol Tartrate [Xopenex HFA] 0 gm INH BIDRT Pramipexole [Mirapex] 0.125 mg PO BEDTIME 06/05/17 Breakfast 2 Gram Sodium Diet [DIET] 06/06/17 05:11 BASIC METABOLIC PANEL,BMP [CHEM] Routine CBC WITH AUTO DIFF [HEME] Routine - Plan Plan:: Assessment/Plan: #1. CHF with valvular dysfunction: Will continue diuretics he had had 4000m of urine output with 1260ml in. #2. ASHD: Stable #3. Anemia: History of MDS. Hb went from 7.7 to 8 after 1 unit of blood. #4. Mitral valve: Dysfunction. History of Mitral valve Repair #5. History of Pulmonary hypertension #6. S/P CABS: Will transfer to [place] for further cardiac testing Monday if stable.
[2017-06-05] MEDS: Potassium Chloride 20 MEQ Tab.ER PO SCH ×2 (18:44→22:10)
[2017-06-05] MEDS ORDERED: Levalbuterol Tartrate HFA 15 GM Inhaler INH SCH (21:00)
[2017-06-05] MEDS: Levalbuterol Tartrate HFA 15 GM Inhaler INH SCH (22:00)
[2017-06-05] MEDS: Simvastatin 20 MG Tab PO SCH (22:04)
[2017-06-05] MEDS: Pramipexole 0.25 MG Tab PO SCH (22:04)
[2017-06-05] MEDS: guaiFENesin/Dextromethorphan 100-10 MG/5 ML Soln 10 ML Cup PO PRN (22:11)
[2017-06-06] MEDS ORDERED: Pramipexole 0.25 MG Tab PO ONE (00:34)
[2017-06-06] MEDS ORDERED: Pramipexole 0.5 MG Tab ONE (01:07)
[2017-06-06] MEDS: Levalbuterol Tartrate HFA 15 GM Inhaler INH SCH ×3 (07:41→21:09)
[2017-06-06] MEDS: Formoterol/Mometasone 200-5 MCG 8.8 GM Inhaler IH SCH ×2 (07:41→21:08)
[2017-06-06] MEDS: Potassium Chloride 20 MEQ Tab.ER PO SCH ×3 (08:54→21:08)
[2017-06-06] MEDS: Cholecalciferol (Vitamin D3) 1,000 Unit Tab PO SCH (08:54)
[2017-06-06] MEDS: Folic Acid 1 MG Tab PO SCH ×4 (08:54→21:08)
[2017-06-06] MEDS: Hydrochlorothiazide 25 MG Tab PO SCH (08:54)
[2017-06-06] MEDS: Fish Oil/Omega-3 Fatty Acids 1 Gm Cap PO SCH ×4 (08:55→21:08)
[2017-06-06] MEDS: Ferrous Sulfate 325 MG Tab PO SCH (08:55)
[2017-06-06] MEDS: Tamsulosin 0.4 MG Cap.ER PO SCH (08:55)
[2017-06-06] MEDS: Spironolactone 25 MG Tab PO SCH (08:55)
[2017-06-06] MEDS: Aspirin 81 MG Tab.EC PO SCH ×2 (08:56→21:08)
[2017-06-06] MEDS: Cyanocobalamin (Vitamin B12) 1,000 MCG Tab PO SCH (08:56)
[2017-06-06] MEDS: Metoprolol Tartrate 25 MG Tab PO SCH ×3 (08:56→21:08)
[2017-06-06] MEDS: Arformoterol 15 MCG/2 ML Neb Soln NEB SCH ×2 (16:10→21:08)
[2017-06-06] MEDS: Simvastatin 20 MG Tab PO SCH ×2 (18:45→21:09)
[2017-06-06] MEDS: Pramipexole 0.25 MG Tab PO SCH ×2 (18:45→21:09)
--- NOTE | 2017-06-06 20:09 | PCM.PN ---
- General Info Date of Service: 06/06/17 Functional Status: Reports: Pain Controlled - Review of Systems General: Reports: Weakness, Fatigue HEENT: Reports: No Symptoms Pulmonary: Reports: Shortness of Breath, Cough, Wheezing Cardiovascular: Reports: Dyspnea on Exertion, Orthopnea, Edema Gastrointestinal: Reports: Decreased Appetite Genitourinary: Reports: No Symptoms Musculoskeletal: Reports: Leg Pain Skin: Reports: No Symptoms Neurological: Reports: No Symptoms Psychiatric: Reports: No Symptoms - Patient Data Vitals - Most Recent: Last Vital Signs Temp 98.4 F 06/06/17 19:00 Pulse 80 06/06/17 19:00 Resp 16 06/06/17 19:00 BP 134/56 L 06/06/17 19:00 Pulse Ox 94 L 06/06/17 19:00 Weight - Most Recent: 246 lb 0.01 oz I&O - Last 24 Hours: Intake & Output 06/06/17 06/06/17 06/06/17 06:59 14:59 22:59 Intake Total 480 480 480 Output Total 650 550 600 Balance -170 -70 -120 Lab Results Last 24 Hours: Laboratory Results - last 24 hr 06/06/17 06/06/17 06/06/17 Range/Units 04:50 04:50 08:26 WBC 1.5 L (4.5-11.0) K/uL RBC 2.39 L (4.30-5.90) M/uL Hgb 8.1 L (12.0-15.0) g/dL Hct 26.9 L (40.0-54.0) % MCV 113 H (80-98) fL MCH 34 H (27-31) pg MCHC 30 L (32-36) % Plt Count 45 L (150-400) K/uL Neut % (Auto) 61 (36-66) % Lymph % (Auto) 35 (24-44) % [place] % (Auto) 4 (2-6) % Eos % (Auto) 1 L (2-4) % Baso % (Auto) 0 (0-1) % Sodium 138 L (140-148) mmol/L Potassium 4.2 (3.6-5.2) mmol/L Chloride 99 L (100-108) mmol/L Carbon Dioxide 31 (21-32) mmol/L Anion Gap 12.2 (5.0-14.0) mmol/L BUN 62 H (7-18) mg/dL Creatinine 1.5 H (0.8-1.3) mg/dL Est Cr Clr Drug Dosing 44.04 mL/min Estimated GFR (MDRD) 46 L (>60) Glucose 129 H (74-106) mg/dL Calcium 8.8 (8.5-10.1) mg/dL Total Bilirubin 3.8 H (0.2-1.0) mg/dL AST (15-37) U/L ALT (12-78) U/L 06/06/17 Range/Units 08:27 WBC (4.5-11.0) K/uL RBC (4.30-5.90) M/uL Hgb (12.0-15.0) g/dL Hct (40.0-54.0) % MCV (80-98) fL MCH (27-31) pg MCHC (32-36) % Plt Count (150-400) K/uL Neut % (Auto) (36-66) % Lymph % (Auto) (24-44) % [place] % (Auto) (2-6) % Eos % (Auto) (2-4) % Baso % (Auto) (0-1) % Sodium (140-148) mmol/L Potassium (3.6-5.2) mmol/L Chloride (100-108) mmol/L Carbon Dioxide (21-32) mmol/L Anion Gap (5.0-14.0) mmol/L BUN (7-18) mg/dL Creatinine (0.8-1.3) mg/dL Est Cr Clr Drug Dosing mL/min Estimated GFR (MDRD) (>60) Glucose (74-106) mg/dL Calcium (8.5-10.1) mg/dL Total Bilirubin (0.2-1.0) mg/dL AST 46 H (15-37) U/L ALT 26 (12-78) U/L Gregg Results Last 24 Hours: Microbiology 06/06/17 08:38 Gram Stain - Final Mouth - Oropharynx Med Orders - Current: Current Medications Arformoterol Tartrate (Brovana) 15 mcg NEB BIDRT [facility] Last Admin: 06/06/17 16:10 Dose: 15 mcg Aspirin (Halfprin) 81 mg PO BEDTIME [facility] Cholecalciferol (Vitamin D3) 1,000 units PO DAILY [facility] Last Admin: 06/06/17 08:54 Dose: 1,000 units Cyanocobalamin (Vitamin B12) 1,000 mcg PO DAILY [facility] Last Admin: 06/06/17 08:56 Dose: 1,000 mcg Ferrous Sulfate (Ferrous Sulfate) 325 mg PO DAILY [facility] Last Admin: 06/06/17 08:55 Dose: 325 mg Fish Oil (Fish Oil) 1,000 gm PO BEDTIME [facility] Last Admin: 06/06/17 18:45 Dose: 1,000 gm Folic Acid (Folic Acid) 1 mg PO BEDTIME [facility] Last Admin: 06/06/17 18:41 Dose: 1 mg Guaifenesin/Dextromethorphan (Robitussin Dm) 10 ml PO Q4H PRN PRN Reason: Cough Last Admin: 06/05/17 22:11 Dose: 10 ml Hydrochlorothiazide (Hydrochlorothiazide) 25 mg PO DAILY [facility] Last Admin: 06/06/17 08:54 Dose: 25 mg Levalbuterol HCl (Xopenex Hfa) 0 gm INH BIDRT [facility] Last Admin: 06/06/17 18:40 Dose: 2 puff Metoprolol Tartrate (Lopressor) 12.5 mg PO BID [facility] Last Admin: 06/06/17 18:41 Dose: 12.5 mg Mometasone Furoate/Formoterol Fumar (Dulera 200-5 Mcg) 2 puff IH BIDRT [facility] Last Admin: 06/06/17 07:41 Dose: 2 puff Potassium Chloride (Klor-Con M20) 20 meq PO BID [facility] Last Admin: 06/06/17 18:45 Dose: 20 meq Pramipexole Dihydrochloride (Mirapex) 0.125 mg PO BEDTIME [facility] Last Admin: 06/06/17 18:45 Dose: 0.125 mg Simvastatin (Zocor) 40 mg PO BEDTIME [facility] Last Admin: 06/06/17 18:45 Dose: 40 mg Sodium Chloride (Saline Flush) 10 ml FLUSH ASDIRECTED PRN PRN Reason: Keep Vein Open Last Admin: 06/04/17 16:18 Dose: 10 ml Spironolactone (Aldactone) 25 mg PO DAILY [facility] Last Admin: 06/06/17 08:55 Dose: 25 mg Tamsulosin HCl (Flomax) 0.4 mg PO PCBREAKFAST [facility] Last Admin: 06/06/17 08:55 Dose: 0.4 mg Discontinued Medications Albuterol/Ipratropium (Duoneb 3.0-0.5 Mg/3 Ml) 3 ml INH Q4H [facility] Last Admin: 06/05/17 09:46 Dose: 3 ml Aspirin (Halfprin) 81 mg PO DAILY [facility] Last Admin: 06/05/17 09:17 Dose: 81 mg Fish Oil (Fish Oil) 1,000 gm PO DAILY [facility] Last Admin: 06/06/17 10:23 Dose: Not Given Folic Acid (Folic Acid) 1 mg PO DAILY [facility] Last Admin: 06/06/17 10:23 Dose: Not Given Furosemide (Lasix) 40 mg IVPUSH ONETIME ONE Stop: 06/04/17 15:56 Last Admin: 06/04/17 16:18 Dose: 40 mg Furosemide (Lasix) 40 mg IVPUSH ONETIME ONE Stop: 06/04/17 17:38 Last Admin: 06/04/17 21:00 Dose: 40 mg Furosemide (Lasix) Confirm Administered Dose 40 mg .ROUTE .STK-MED ONE Stop: 06/04/17 20:59 Last Admin: 06/04/17 21:12 Dose: Not Given Ipratropium [place] (Atrovent) 0.5 mg NEB BIDRT [facility] Last Admin: 06/05/17 07:55 Dose: Not Given Metolazone (Zaroxolyn) 2.5 mg PO ONETIME ONE Stop: 06/04/17 15:55 Last Admin: 06/04/17 16:14 Dose: 2.5 mg Mometasone Furoate/Formoterol Fumar (Dulera 200-5 Mcg) 2 puff IH BID [facility] Last Admin: 06/04/17 22:30 Dose: 2 puff Non-Formulary Medication (Ipratropium [Atrovent Hfa]) 2 puff INH BID [facility] Last Admin: 06/06/17 16:18 Dose: Not Given Pramipexole Dihydrochloride (Mirapex) 0.125 mg PO BEDTIME [facility] Last Admin: 06/04/17 22:34 Dose: 0.125 mg Pramipexole Dihydrochloride (Mirapex) 0.125 mg PO ONETIME ONE Stop: 06/05/17 01:30 Last Admin: 06/05/17 01:50 Dose: 0.125 mg Pramipexole Dihydrochloride (Mirapex) 0.125 mg PO BEDTIME ONE Stop: 06/06/17 00:35 Last Admin: 06/06/17 01:11 Dose: 0.125 mg Pramipexole Dihydrochloride (Mirapex) Confirm Administered Dose 0.5 mg .ROUTE .STK-MED ONE Stop: 06/06/17 01:08 Last Admin: 06/06/17 03:12 Dose: Not Given - Exam General: Alert, Oriented, Moderate Distress HEENT: Pupils Equal, Pupils Reactive, EOMI, Mucous Membr. Moist/[place] Neck: Supple Lungs: Decreased Breath Sounds, Wheezing Cardiovascular: Murmurs GI/Abdominal Exam: Normal Bowel Sounds, Soft, Non-Tender, No Organomegaly, No Distention, No Abnormal Bruit, No Mass, Pelvis Stable Peripheral Pulses: 1+: Radial (L), Radial (R) Skin: Warm, Dry, Intact Neurological: No New Focal Deficit - Problem List Review Problem List Initiated/Reviewed/Updated: Yes - My Orders Last 24 Hours: My Active Orders 06/05/17 21:00 Levalbuterol Tartrate [Xopenex HFA] 0 gm INH BIDRT Pramipexole [Mirapex] 0.125 mg PO BEDTIME 06/06/17 08:38 CULTURE RESPIRATORY + SMEAR [RM] Routine 06/06/17 16:00 Arformoterol [Brovana] 15 mcg NEB BIDRT 06/06/17 19:54 Abdomen Comp [US] Routine 06/06/17 21:00 Aspirin [Halfprin] 81 mg PO BEDTIME Fish Oil/[place]-3 Fatty Acids [Fish Oil] 1,000 gm PO BEDTIME Folic Acid 1 mg PO BEDTIME 06/07/17 05:11 CBC WITH AUTO DIFF [HEME] Routine COMPREHENSIVE METABOLIC PN,CMP [CHEM] Routine - Plan Plan:: Assessment/Plan: #1. CHF with valvular dysfunction: Will continue diuretics he has had improved dieresis #2. ASHD: Stable #3. Anemia: History of MDS. Hb went from 7.7 to 8 after 1 unit of blood. #4. Mitral valve: Dysfunction. History of Mitral valve Repair #5. History of Pulmonary hypertension #6. S/P CABS: #7. Respiratory distress: Chago continue with Nebs #8. Increased bili: Ultrasound of abd is pending.
[2017-06-06] MEDS: guaiFENesin/Dextromethorphan 100-10 MG/5 ML Soln 10 ML Cup PO PRN (23:27)
[2017-06-07] MEDS ORDERED: Pramipexole 0.25 MG Tab PO STA (03:49)
[2017-06-07] MEDS ORDERED: Pramipexole 0.5 MG Tab ONE ×2 (04:18→23:26)
[2017-06-07] MEDS ORDERED: Albuterol 0.083% 2.5 MG/3 ML Neb Soln NEB ONE (04:33)
[2017-06-07] MEDS: Tamsulosin 0.4 MG Cap.ER PO SCH (08:03)
[2017-06-07] MEDS: Ferrous Sulfate 325 MG Tab PO SCH (08:03)
[2017-06-07] MEDS: Hydrochlorothiazide 25 MG Tab PO SCH (08:03)
[2017-06-07] MEDS: Spironolactone 25 MG Tab PO SCH (08:03)
[2017-06-07] MEDS: Cholecalciferol (Vitamin D3) 1,000 Unit Tab PO SCH (08:04)
[2017-06-07] MEDS: Potassium Chloride 20 MEQ Tab.ER PO SCH ×2 (08:04→22:05)
[2017-06-07] MEDS: Cyanocobalamin (Vitamin B12) 1,000 MCG Tab PO SCH (08:04)
[2017-06-07] MEDS: Metoprolol Tartrate 25 MG Tab PO SCH ×2 (08:04→22:06)
[2017-06-07] MEDS ORDERED: methylPREDNISolone 4 MG Tab 21 Tab/Dosepak PO SCH (08:30)
--- NOTE | 2017-06-07 08:32 | US ---
Abdomen Comp HISTORY: Liver dysfunction FINDINGS: The liver appears within normal limits in size and echogenicity with no focal parenchymal abnormality identified. The spleen is borderline enlarged. The spleen measures 14.3 cm in length. Gallbladder is within normal limits in size. No gallstones or gallbladder wall thickening can be seen. Wall thickne ss measures 2 mm. There is no pericholecystic fluid. Sonographic Frey sign is negative. Biliary marbella ts are not dilated. Common bile duct measures 4 mm in diameter. Head and body of the pancreas appear within normal limits in size and echogenicity with no mass or ab normal fluid collections. Tail of the pancreas is obscured by bowel gas. Both kidneys are within norm al limits in size and echogenicity. The right kidney measures 11.2 cm in length. The left measures 12 .4 cm. In length. There are 3 thin-walled anechoic cortical cysts on the right kidney. The largest me asures 4.0 x 4.2 x 3.7 cm. There are also 3 anechoic cysts on the left kidney. The largest measures 7 .3 x 6.5 x 6.7 cm. Abdominal aorta and inferior vena cava are unremarkable. IMPRESSION: 1. Borderline splenomegaly. 2. Multiple renal cysts bilaterally as above. 3. No other sonographic abnormality of the upper abdomen is identified.
[2017-06-07] MEDS: Formoterol/Mometasone 200-5 MCG 8.8 GM Inhaler IH SCH ×2 (08:43→21:58)
[2017-06-07] MEDS: Levalbuterol Tartrate HFA 15 GM Inhaler INH SCH ×2 (08:45→22:04)
[2017-06-07] MEDS: Arformoterol 15 MCG/2 ML Neb Soln NEB SCH ×2 (08:49→21:54)
[2017-06-07] MEDS ORDERED: Furosemide 40 MG/4 ML VIAL IVPUSH ONE ×3 (13:00→18:00)
[2017-06-07] MEDS ORDERED: Metolazone 2.5 MG Tab PO ONE ×2 (13:00→18:00)
[2017-06-07] MEDS ORDERED: Pramipexole 0.25 MG Tab PO ONE (14:30)
--- NOTE | 2017-06-07 16:30 | PCM.PN ---
- General Info Date of Service: 06/07/17 Functional Status: Reports: Pain Controlled - Review of Systems General: Reports: Weakness, Fatigue Pulmonary: Reports: Shortness of Breath, Cough, Wheezing Cardiovascular: Reports: Dyspnea on Exertion, Edema Gastrointestinal: Reports: No Symptoms Genitourinary: Reports: No Symptoms Musculoskeletal: Reports: No Symptoms Skin: Reports: No Symptoms Neurological: Reports: No Symptoms Psychiatric: Reports: No Symptoms - Patient Data Vitals - Most Recent: Last Vital Signs Temp 98.7 F 06/07/17 15:33 Pulse 76 06/07/17 16:17 Resp 18 06/07/17 15:33 BP 118/47 L 06/07/17 16:17 Pulse Ox 91 L 06/07/17 16:17 Weight - Most Recent: 246 lb 0.01 oz I&O - Last 24 Hours: Intake & Output 06/07/17 06/07/17 06/07/17 06:59 14:59 22:59 Intake Total 360 480 Output Total 800 600 Balance -440 -120 Lab Results Last 24 Hours: Laboratory Results - last 24 hr 06/04/17 06/07/17 06/07/17 Range/Units 17:30 05:30 05:30 WBC 2.0 L (4.5-11.0) K/uL RBC 2.15 L (4.30-5.90) M/uL Hgb 7.6 L (12.0-15.0) g/dL Hct 24.7 L (40.0-54.0) % MCV 115 H (80-98) fL MCH 35 H (27-31) pg MCHC 31 L (32-36) % Plt Count 41 L (150-400) K/uL Neut % (Auto) 56 (36-66) % Lymph % (Auto) 38 (24-44) % [place] % (Auto) 6 (2-6) % Eos % (Auto) 1 L (2-4) % Baso % (Auto) 0 (0-1) % Sodium 136 L (140-148) mmol/L Potassium 4.3 (3.6-5.2) mmol/L Chloride 100 (100-108) mmol/L Carbon Dioxide 31 (21-32) mmol/L Anion Gap 9.3 (5.0-14.0) mmol/L BUN 63 H (7-18) mg/dL Creatinine 1.5 H (0.8-1.3) mg/dL Est Cr Clr Drug Dosing 44.04 mL/min Estimated GFR (MDRD) 46 L (>60) Glucose 102 (74-106) mg/dL Calcium 8.8 (8.5-10.1) mg/dL Total Bilirubin 3.9 H (0.2-1.0) mg/dL AST 48 H (15-37) U/L ALT 30 (12-78) U/L Alkaline Phosphatase 42 L (46-116) U/L Total Protein 6.8 (6.4-8.2) g/dL Albumin 3.5 (3.4-5.0) g/dL Globulin 3.3 (2.3-3.5) g/dL Albumin/Globulin Ratio 1.1 L (1.2-2.2) Blood Type Gel Antibody Screen Crossmatch See Detail 06/07/17 Range/Units 05:30 WBC (4.5-11.0) K/uL RBC (4.30-5.90) M/uL Hgb (12.0-15.0) g/dL Hct (40.0-54.0) % MCV (80-98) fL MCH (27-31) pg MCHC (32-36) % Plt Count (150-400) K/uL Neut % (Auto) (36-66) % Lymph % (Auto) (24-44) % [place] % (Auto) (2-6) % Eos % (Auto) (2-4) % Baso % (Auto) (0-1) % Sodium (140-148) mmol/L Potassium (3.6-5.2) mmol/L Chloride (100-108) mmol/L Carbon Dioxide (21-32) mmol/L Anion Gap (5.0-14.0) mmol/L BUN (7-18) mg/dL Creatinine (0.8-1.3) mg/dL Est Cr Clr Drug Dosing mL/min Estimated GFR (MDRD) (>60) Glucose (74-106) mg/dL Calcium (8.5-10.1) mg/dL Total Bilirubin (0.2-1.0) mg/dL AST (15-37) U/L ALT (12-78) U/L Alkaline Phosphatase (46-116) U/L Total Protein (6.4-8.2) g/dL Albumin (3.4-5.0) g/dL Globulin (2.3-3.5) g/dL Albumin/Globulin Ratio (1.2-2.2) Blood Type O POSITIVE Gel Antibody Screen Negative Crossmatch See Detail Gregg Results Last 24 Hours: Microbiology 06/06/17 08:38 Gram Stain - Final Mouth - Oropharynx Respiratory Culture - Preliminary NORMAL RESPIRATORY EMILY 1 DAY Med Orders - Current: Current Medications Arformoterol Tartrate (Brovana) 15 mcg NEB BIDRT [facility] Last Admin: 06/07/17 08:49 Dose: Not Given Aspirin (Halfprin) 81 mg PO BEDTIME [facility] Last Admin: 06/06/17 21:08 Dose: Not Given Cholecalciferol (Vitamin D3) 1,000 units PO DAILY [facility] Last Admin: 06/07/17 08:04 Dose: 1,000 units Cyanocobalamin (Vitamin B12) 1,000 mcg PO DAILY [facility] Last Admin: 06/07/17 08:04 Dose: 1,000 mcg Ferrous Sulfate (Ferrous Sulfate) 325 mg PO DAILY [facility] Last Admin: 06/07/17 08:03 Dose: 325 mg Fish Oil (Fish Oil) 1,000 gm PO BEDTIME [facility] Last Admin: 06/06/17 21:08 Dose: Not Given Folic Acid (Folic Acid) 1 mg PO BEDTIME [facility] Last Admin: 06/06/17 21:08 Dose: Not Given Furosemide (Lasix) 40 mg IVPUSH ONETIME ONE Stop: 06/07/17 18:01 Guaifenesin/Dextromethorphan (Robitussin Dm) 10 ml PO Q4H PRN PRN Reason: Cough Last Admin: 06/06/17 23:27 Dose: 10 ml Hydrochlorothiazide (Hydrochlorothiazide) 25 mg PO DAILY [facility] Last Admin: 06/07/17 08:03 Dose: 25 mg Levalbuterol HCl (Xopenex Hfa) 0 gm INH BIDRT [facility] Last Admin: 06/07/17 08:45 Dose: 2 puff Methylprednisolone (Medrol) 8 mg PO BID@0800,2100 [facility] Stop: 06/07/17 21:01 Last Admin: 06/07/17 09:57 Dose: 8 mg Methylprednisolone (Medrol) 4 mg PO BID@1100,1700 [facility] Stop: 06/07/17 17:01 Last Admin: 06/07/17 12:33 Dose: 4 mg Methylprednisolone (Medrol) 4 mg PO TIDMEALS [facility] Stop: 06/08/17 17:01 Methylprednisolone (Medrol) 8 mg PO BEDTIME [facility] Stop: 06/08/17 21:01 Methylprednisolone (Medrol) 4 mg PO 0800,1100,1700,2100 [facility] Stop: 06/09/17 21:01 Methylprednisolone (Medrol) 4 mg PO TID@0800,1100,2100 [facility] Stop: 06/10/17 21:01 Methylprednisolone (Medrol) 4 mg PO BID@0800,2100 [facility] Stop: 06/11/17 21:01 Methylprednisolone (Medrol) 4 mg PO WITHBREAKFAST [facility] Stop: 06/08/17 08:01 Metolazone (Zaroxolyn) 2.5 mg PO BIDDIURETIC [facility] Metolazone (Zaroxolyn) 2.5 mg PO ONETIME ONE Stop: 06/07/17 18:01 Metoprolol Tartrate (Lopressor) 12.5 mg PO BID [facility] Last Admin: 06/07/17 08:04 Dose: 12.5 mg Mometasone Furoate/Formoterol Fumar (Dulera 200-5 Mcg) 2 puff IH BIDRT [facility] Last Admin: 06/07/17 08:43 Dose: 2 puff Potassium Chloride (Klor-Con M20) 20 meq PO BID [facility] Last Admin: 06/07/17 08:04 Dose: 20 meq Pramipexole Dihydrochloride (Mirapex) 0.125 mg PO BEDTIME [facility] Simvastatin (Zocor) 40 mg PO BEDTIME [facility] Last Admin: 06/06/17 21:09 Dose: Not Given Sodium Chloride (Saline Flush) 10 ml FLUSH ASDIRECTED PRN PRN Reason: Keep Vein Open Last Admin: 06/04/17 16:18 Dose: 10 ml Spironolactone (Aldactone) 25 mg PO DAILY [facility] Last Admin: 06/07/17 08:03 Dose: 25 mg Tamsulosin HCl (Flomax) 0.4 mg PO PCBREAKFAST [facility] Last Admin: 06/07/17 08:03 Dose: 0.4 mg Discontinued Medications Albuterol (Proventil Neb Soln) 2.5 mg NEB ONETIME ONE Stop: 06/07/17 04:34 Last Admin: 06/07/17 04:46 Dose: 2.5 mg Albuterol/Ipratropium (Duoneb 3.0-0.5 Mg/3 Ml) 3 ml INH Q4H [facility] Last Admin: 06/05/17 09:46 Dose: 3 ml Aspirin (Halfprin) 81 mg PO DAILY [facility] Last Admin: 06/05/17 09:17 Dose: 81 mg Fish Oil (Fish Oil) 1,000 gm PO DAILY [facility] Last Admin: 06/06/17 10:23 Dose: Not Given Folic Acid (Folic Acid) 1 mg PO DAILY [facility] Last Admin: 06/06/17 10:23 Dose: Not Given Furosemide (Lasix) 40 mg IVPUSH ONETIME ONE Stop: 06/04/17 15:56 Last Admin: 06/04/17 16:18 Dose: 40 mg Furosemide (Lasix) 40 mg IVPUSH ONETIME ONE Stop: 06/04/17 17:38 Last Admin: 06/04/17 21:00 Dose: 40 mg Furosemide (Lasix) Confirm Administered Dose 40 mg .ROUTE .STK-MED ONE Stop: 06/04/17 20:59 Last Admin: 06/04/17 21:12 Dose: Not Given Furosemide (Lasix) 40 mg IVPUSH ONETIME ONE Stop: 06/07/17 13:01 Furosemide (Lasix) 40 mg IVPUSH ONETIME ONE Stop: 06/07/17 13:31 Last Admin: 06/07/17 13:33 Dose: 40 mg Ipratropium [place] (Atrovent) 0.5 mg NEB BIDRT [facility] Last Admin: 06/05/17 07:55 Dose: Not Given Methylprednisolone (Medrol) 0 mg PO ASDIRECTED [facility]; Protocol Stop: 06/07/17 09:00 Metolazone (Zaroxolyn) 2.5 mg PO ONETIME ONE Stop: 06/04/17 15:55 Last Admin: 06/04/17 16:14 Dose: 2.5 mg Metolazone (Zaroxolyn) 2.5 mg PO ONETIME ONE Stop: 06/07/17 13:01 Last Admin: 06/07/17 12:57 Dose: 2.5 mg Mometasone Furoate/Formoterol Fumar (Dulera 200-5 Mcg) 2 puff IH BID [facility] Last Admin: 06/04/17 22:30 Dose: 2 puff Non-Formulary Medication (Ipratropium [Atrovent Hfa]) 2 puff INH BID [facility] Last Admin: 06/06/17 16:18 Dose: Not Given Pramipexole Dihydrochloride (Mirapex) 0.125 mg PO BEDTIME [facility] Last Admin: 06/04/17 22:34 Dose: 0.125 mg Pramipexole Dihydrochloride (Mirapex) 0.125 mg PO ONETIME ONE Stop: 06/05/17 01:30 Last Admin: 06/05/17 01:50 Dose: 0.125 mg Pramipexole Dihydrochloride (Mirapex) 0.125 mg PO BEDTIME [facility] Last Admin: 06/06/17 21:09 Dose: Not Given Pramipexole Dihydrochloride (Mirapex) 0.125 mg PO BEDTIME ONE Stop: 06/06/17 00:35 Last Admin: 06/06/17 01:11 Dose: 0.125 mg Pramipexole Dihydrochloride (Mirapex) Confirm Administered Dose 0.5 mg .ROUTE .STK-MED ONE Stop: 06/06/17 01:08 Last Admin: 06/06/17 03:12 Dose: Not Given Pramipexole Dihydrochloride (Mirapex) 0.125 mg PO NOW STA Stop: 06/07/17 03:50 Last Admin: 06/07/17 04:22 Dose: 0.125 mg Pramipexole Dihydrochloride (Mirapex) Confirm Administered Dose 0.5 mg .ROUTE .STK-MED ONE Stop: 06/07/17 04:19 Last Admin: 06/07/17 04:22 Dose: Not Given Pramipexole Dihydrochloride (Mirapex) 0.125 mg PO ONETIME ONE Stop: 06/07/17 14:31 Last Admin: 06/07/17 14:09 Dose: 0.125 mg - Exam General: Alert, Oriented HEENT: Pupils Equal, Pupils Reactive, EOMI, Mucous Membr. Moist/[place] Neck: Supple Lungs: Decreased Breath Sounds, Crackles, Rales, Wheezing Cardiovascular: Regular Rate, Regular Rhythm, Murmurs GI/Abdominal Exam: Normal Bowel Sounds, Soft, Non-Tender, No Organomegaly, No Distention, No Abnormal Bruit, No Mass, Pelvis Stable Extremities: Pedal Edema Peripheral Pulses: 1+: Radial (L), Radial (R) Skin: Warm, Dry, Intact Psy/Mental Status: Alert, Normal Affect, Normal Mood - Problem List Review Problem List Initiated/Reviewed/Updated: Yes - My Orders Last 24 Hours: My Active Orders 06/06/17 16:00 Arformoterol [Brovana] 15 mcg NEB BIDRT 06/06/17 21:00 Aspirin [Halfprin] 81 mg PO BEDTIME Fish Oil/[place]-3 Fatty Acids [Fish Oil] 1,000 gm PO BEDTIME Folic Acid 1 mg PO BEDTIME 06/07/17 05:30 RED BLOOD CELLS LP [BBK] Routine TYPE AND SCREEN [BBK] Routine 06/07/17 08:00 methylPREDNISolone [Medrol] 8 mg PO BID@0800,2100 06/07/17 08:25 Transfuse Red Blood Cells [COMM] Routine 06/07/17 08:40 RT Evaluate for Home Oxygen [RC] Click to Edit 06/07/17 11:00 methylPREDNISolone [Medrol] 4 mg PO BID@1100,1700 06/07/17 12:15 [place] Catheter Insertion [Insert Urinary Catheter] [OM.PC] Q24H 06/07/17 12:16 Urinary Catheter Assessment [RC] ASDIRECTED 06/07/17 12:18 Communication Order [RC] ROUTINE 06/07/17 18:00 Furosemide [Lasix] 40 mg IVPUSH ONETIME ONE Metolazone [Zaroxolyn] 2.5 mg PO ONETIME ONE 06/07/17 21:00 Pramipexole [Mirapex] 0.125 mg PO BEDTIME 06/08/17 08:00 Metolazone [Zaroxolyn] 2.5 mg PO BIDDIURETIC methylPREDNISolone [Medrol] 4 mg PO TIDMEALS methylPREDNISolone [Medrol] 4 mg PO WITHBREAKFAST 06/08/17 21:00 methylPREDNISolone [Medrol] 8 mg PO BEDTIME 06/09/17 08:00 methylPREDNISolone [Medrol] 4 mg PO 0800,1100,1700,2100 06/10/17 08:00 methylPREDNISolone [Medrol] 4 mg PO TID@0800,1100,2100 06/11/17 08:00 methylPREDNISolone [Medrol] 4 mg PO BID@0800,2100 - Plan Plan:: Assessment/Plan: #1. CHF with valvular dysfunction: I feel he is fluid overloaded and have started this morning on IV Lasix and Metolazone. By 4pm he passed 750cc of urine and breathing better. #2. ASHD: Stable #3. Anemia: History of MDS. Hb went down to beow 8 and will give blood after fluid reduction. #4. Mitral valve: Dysfunction. History of Mitral valve Repair #5. History of Pulmonary hypertension #6. S/P CABS: #7. Respiratory distress: Chago continue with Nebs and started on a Medrol dose radu which has helped his breathing. #8. Increased bili: Ultrasound of abd is normal.
[2017-06-07] MEDS: Fish Oil/Omega-3 Fatty Acids 1 Gm Cap PO SCH (22:03)
[2017-06-07] MEDS: Folic Acid 1 MG Tab PO SCH (22:04)
[2017-06-07] MEDS: Aspirin 81 MG Tab.EC PO SCH (22:05)
[2017-06-07] MEDS: Pramipexole 0.25 MG Tab PO SCH (22:06)
[2017-06-07] MEDS: Simvastatin 20 MG Tab PO SCH (22:06)
[2017-06-07] MEDS ORDERED: Pramipexole 0.25 MG Tab PO PRN (23:11)
[2017-06-08] MEDS: Arformoterol 15 MCG/2 ML Neb Soln NEB SCH ×2 (08:06→21:07)
[2017-06-08] MEDS: Formoterol/Mometasone 200-5 MCG 8.8 GM Inhaler IH SCH ×2 (08:09→21:03)
[2017-06-08] MEDS: Levalbuterol Tartrate HFA 15 GM Inhaler INH SCH ×2 (08:10→21:09)
[2017-06-08] MEDS: Cyanocobalamin (Vitamin B12) 1,000 MCG Tab PO SCH (08:29)
[2017-06-08] MEDS: Metoprolol Tartrate 25 MG Tab PO SCH ×2 (08:29→21:11)
[2017-06-08] MEDS: Cholecalciferol (Vitamin D3) 1,000 Unit Tab PO SCH (08:29)
[2017-06-08] MEDS: Hydrochlorothiazide 25 MG Tab PO SCH (08:30)
[2017-06-08] MEDS: Tamsulosin 0.4 MG Cap.ER PO SCH (08:30)
[2017-06-08] MEDS: Metolazone 2.5 MG Tab PO SCH ×2 (08:30→13:57)
[2017-06-08] MEDS: Potassium Chloride 20 MEQ Tab.ER PO SCH ×2 (08:30→21:06)
[2017-06-08] MEDS: Ferrous Sulfate 325 MG Tab PO SCH (08:30)
[2017-06-08] MEDS: Spironolactone 25 MG Tab PO SCH (08:30)
[2017-06-08] MEDS ORDERED: Furosemide 40 MG/4 ML VIAL IVPUSH ONE (14:30)
--- NOTE | 2017-06-08 18:06 | PCM.PN ---
- General Info Date of Service: 06/08/17 Functional Status: Reports: Pain Controlled - Review of Systems General: Reports: Weakness, Fatigue HEENT: Reports: No Symptoms Pulmonary: Reports: Shortness of Breath, Cough Cardiovascular: Reports: No Symptoms, Dyspnea on Exertion Gastrointestinal: Reports: No Symptoms Genitourinary: Reports: No Symptoms Musculoskeletal: Reports: No Symptoms Skin: Reports: No Symptoms Neurological: Reports: No Symptoms Psychiatric: Reports: No Symptoms - Patient Data Vitals - Most Recent: Last Vital Signs Temp 97.8 F 06/08/17 14:30 Pulse 73 06/08/17 14:30 Resp 20 06/08/17 14:30 BP 133/55 L 06/08/17 14:59 Pulse Ox 97 06/08/17 14:30 Weight - Most Recent: 243 lb 9.6 oz I&O - Last 24 Hours: Intake & Output 06/08/17 06/08/17 06/08/17 06:59 14:59 22:59 Intake Total 240 385 Output Total 1656 283 7207 Balance -7707 -485 -9949 Lab Results Last 24 Hours: Laboratory Results - last 24 hr 06/07/17 06/08/17 06/08/17 Range/Units 05:30 09:10 09:10 WBC 1.7 L (4.5-11.0) K/uL RBC 2.11 L (4.30-5.90) M/uL Hgb 7.5 L (12.0-15.0) g/dL Hct 24.3 L (40.0-54.0) % MCV 115 H (80-98) fL MCH 36 H (27-31) pg MCHC 31 L (32-36) % Plt Count 43 L (150-400) K/uL Neut % (Auto) 76 H (36-66) % Lymph % (Auto) 20 L (24-44) % [place] % (Auto) 4 (2-6) % Eos % (Auto) 0 L (2-4) % Baso % (Auto) 0 (0-1) % Percent Retic (0.5-1.5) % Sodium 139 L (140-148) mmol/L Potassium 4.6 (3.6-5.2) mmol/L Chloride 100 (100-108) mmol/L Carbon Dioxide 32 (21-32) mmol/L Anion Gap 11.6 (5.0-14.0) mmol/L BUN 76 H* (7-18) mg/dL Creatinine 1.6 H (0.8-1.3) mg/dL Est Cr Clr Drug Dosing 41.29 mL/min Estimated GFR (MDRD) 42 L (>60) Glucose 124 H (74-106) mg/dL Calcium 8.9 (8.5-10.1) mg/dL Total Bilirubin 3.1 H (0.2-1.0) mg/dL AST 49 H (15-37) U/L ALT 30 (12-78) U/L Alkaline Phosphatase 46 (46-116) U/L Total Protein 6.8 (6.4-8.2) g/dL Albumin 3.5 (3.4-5.0) g/dL Globulin 3.3 (2.3-3.5) g/dL Albumin/Globulin Ratio 1.1 L (1.2-2.2) Blood Type O POSITIVE Gel Antibody Screen Negative Crossmatch See Detail 06/08/17 Range/Units 10:46 WBC (4.5-11.0) K/uL RBC (4.30-5.90) M/uL Hgb (12.0-15.0) g/dL Hct (40.0-54.0) % MCV (80-98) fL MCH (27-31) pg MCHC (32-36) % Plt Count (150-400) K/uL Neut % (Auto) (36-66) % Lymph % (Auto) (24-44) % [place] % (Auto) (2-6) % Eos % (Auto) (2-4) % Baso % (Auto) (0-1) % Percent Retic 4.4 H (0.5-1.5) % Sodium (140-148) mmol/L Potassium (3.6-5.2) mmol/L Chloride (100-108) mmol/L Carbon Dioxide (21-32) mmol/L Anion Gap (5.0-14.0) mmol/L BUN (7-18) mg/dL Creatinine (0.8-1.3) mg/dL Est Cr Clr Drug Dosing mL/min Estimated GFR (MDRD) (>60) Glucose (74-106) mg/dL Calcium (8.5-10.1) mg/dL Total Bilirubin (0.2-1.0) mg/dL AST (15-37) U/L ALT (12-78) U/L Alkaline Phosphatase (46-116) U/L Total Protein (6.4-8.2) g/dL Albumin (3.4-5.0) g/dL Globulin (2.3-3.5) g/dL Albumin/Globulin Ratio (1.2-2.2) Blood Type Gel Antibody Screen Crossmatch [place] Results Last 24 Hours: Microbiology 06/06/17 08:38 Gram Stain - Final Mouth - Oropharynx Respiratory Culture - Final NORMAL RESPIRATORY EMILY 2 DAYS Med Orders - Current: Current Medications Arformoterol Tartrate (Brovana) 15 mcg NEB BIDRT [facility] Last Admin: 06/08/17 08:06 Dose: 15 mcg Aspirin (Halfprin) 81 mg PO BEDTIME [facility] Last Admin: 06/07/17 22:05 Dose: 81 mg Cholecalciferol (Vitamin D3) 1,000 units PO DAILY [facility] Last Admin: 06/08/17 08:29 Dose: 1,000 units Cyanocobalamin (Vitamin B12) 1,000 mcg PO DAILY [facility] Last Admin: 06/08/17 08:29 Dose: 1,000 mcg Ferrous Sulfate (Ferrous Sulfate) 325 mg PO DAILY [facility] Last Admin: 06/08/17 08:30 Dose: 325 mg Fish Oil (Fish Oil) 1,000 gm PO BEDTIME [facility] Last Admin: 06/07/17 22:03 Dose: 1,000 gm Folic Acid (Folic Acid) 1 mg PO BEDTIME [facility] Last Admin: 06/07/17 22:04 Dose: 1 mg Guaifenesin/Dextromethorphan (Robitussin Dm) 10 ml PO Q4H PRN PRN Reason: Cough Last Admin: 06/06/17 23:27 Dose: 10 ml Hydrochlorothiazide (Hydrochlorothiazide) 25 mg PO DAILY [facility] Last Admin: 06/08/17 08:30 Dose: 25 mg Levalbuterol HCl (Xopenex Hfa) 0 gm INH BIDRT [facility] Last Admin: 06/08/17 08:10 Dose: 2 puff Methylprednisolone (Medrol) 8 mg PO BEDTIME [facility] Stop: 06/08/17 21:01 Methylprednisolone (Medrol) 4 mg PO 0800,1100,1700,2100 [facility] Stop: 06/09/17 21:01 Methylprednisolone (Medrol) 4 mg PO TID@0800,1100,2100 [facility] Stop: 06/10/17 21:01 Methylprednisolone (Medrol) 4 mg PO BID@0800,2100 [facility] Stop: 06/11/17 21:01 Methylprednisolone (Medrol) 4 mg PO WITHBREAKFAST [facility] Stop: 06/12/17 08:01 Metolazone (Zaroxolyn) 2.5 mg PO BIDDIURETIC [facility] Last Admin: 06/08/17 13:57 Dose: 2.5 mg Metoprolol Tartrate (Lopressor) 12.5 mg PO BID [facility] Last Admin: 06/08/17 08:29 Dose: 12.5 mg Mometasone Furoate/Formoterol Fumar (Dulera 200-5 Mcg) 2 puff IH BIDRT [facility] Last Admin: 06/08/17 08:09 Dose: 2 puff Potassium Chloride (Klor-Con M20) 20 meq PO BID [facility] Last Admin: 06/08/17 08:30 Dose: 20 meq Pramipexole Dihydrochloride (Mirapex) 0.125 mg PO BEDTIME [facility] Last Admin: 06/07/17 22:06 Dose: 0.125 mg Pramipexole Dihydrochloride (Mirapex) 0.125 mg PO BEDTIME PRN PRN Reason: Irritability Last Admin: 06/07/17 23:28 Dose: 0.125 mg Simvastatin (Zocor) 40 mg PO BEDTIME [facility] Last Admin: 06/07/17 22:06 Dose: 40 mg Sodium Chloride (Saline Flush) 10 ml FLUSH ASDIRECTED PRN PRN Reason: Keep Vein Open Last Admin: 06/04/17 16:18 Dose: 10 ml Spironolactone (Aldactone) 25 mg PO DAILY [facility] Last Admin: 06/08/17 08:30 Dose: 25 mg Tamsulosin HCl (Flomax) 0.4 mg PO PCBREAKFAST [facility] Last Admin: 06/08/17 08:30 Dose: 0.4 mg Discontinued Medications Albuterol (Proventil Neb Soln) 2.5 mg NEB ONETIME ONE Stop: 06/07/17 04:34 Last Admin: 06/07/17 04:46 Dose: 2.5 mg Albuterol/Ipratropium (Duoneb 3.0-0.5 Mg/3 Ml) 3 ml INH Q4H [facility] Last Admin: 06/05/17 09:46 Dose: 3 ml Aspirin (Halfprin) 81 mg PO DAILY [facility] Last Admin: 06/05/17 09:17 Dose: 81 mg Fish Oil (Fish Oil) 1,000 gm PO DAILY [facility] Last Admin: 06/06/17 10:23 Dose: Not Given Folic Acid (Folic Acid) 1 mg PO DAILY [facility] Last Admin: 06/06/17 10:23 Dose: Not Given Furosemide (Lasix) 40 mg IVPUSH ONETIME ONE Stop: 06/04/17 15:56 Last Admin: 06/04/17 16:18 Dose: 40 mg Furosemide (Lasix) 40 mg IVPUSH ONETIME ONE Stop: 06/04/17 17:38 Last Admin: 06/04/17 21:00 Dose: 40 mg Furosemide (Lasix) Confirm Administered Dose 40 mg .ROUTE .STK-MED ONE Stop: 06/04/17 20:59 Last Admin: 06/04/17 21:12 Dose: Not Given Furosemide (Lasix) 40 mg IVPUSH ONETIME ONE Stop: 06/07/17 13:01 Furosemide (Lasix) 40 mg IVPUSH ONETIME ONE Stop: 06/07/17 13:31 Last Admin: 06/07/17 13:33 Dose: 40 mg Furosemide (Lasix) 40 mg IVPUSH ONETIME ONE Stop: 06/07/17 18:01 Last Admin: 06/07/17 17:23 Dose: 40 mg Furosemide (Lasix) 40 mg IVPUSH ONETIME ONE Stop: 06/08/17 14:31 Last Admin: 06/08/17 14:59 Dose: 40 mg Ipratropium [place] (Atrovent) 0.5 mg NEB BIDRT [facility] Last Admin: 06/05/17 07:55 Dose: Not Given Methylprednisolone (Medrol) 0 mg PO ASDIRECTED [facility]; Protocol Stop: 06/07/17 09:00 Methylprednisolone (Medrol) 8 mg PO BID@0800,2100 [facility] Stop: 06/07/17 21:01 Last Admin: 06/07/17 22:05 Dose: 8 mg Methylprednisolone (Medrol) 4 mg PO BID@1100,1700 [facility] Stop: 06/07/17 17:01 Last Admin: 06/07/17 17:22 Dose: 4 mg Methylprednisolone (Medrol) 4 mg PO TIDMEALS [facility] Stop: 06/08/17 17:01 Last Admin: 06/08/17 17:50 Dose: 4 mg Metolazone (Zaroxolyn) 2.5 mg PO ONETIME ONE Stop: 06/04/17 15:55 Last Admin: 06/04/17 16:14 Dose: 2.5 mg Metolazone (Zaroxolyn) 2.5 mg PO ONETIME ONE Stop: 06/07/17 13:01 Last Admin: 06/07/17 12:57 Dose: 2.5 mg Metolazone (Zaroxolyn) 2.5 mg PO ONETIME ONE Stop: 06/07/17 18:01 Last Admin: 06/07/17 17:22 Dose: 2.5 mg Mometasone Furoate/Formoterol Fumar (Dulera 200-5 Mcg) 2 puff IH BID [facility] Last Admin: 06/04/17 22:30 Dose: 2 puff Non-Formulary Medication (Ipratropium [Atrovent Hfa]) 2 puff INH BID [facility] Last Admin: 06/06/17 16:18 Dose: Not Given Pramipexole Dihydrochloride (Mirapex) 0.125 mg PO BEDTIME [facility] Last Admin: 06/04/17 22:34 Dose: 0.125 mg Pramipexole Dihydrochloride (Mirapex) 0.125 mg PO ONETIME ONE Stop: 06/05/17 01:30 Last Admin: 06/05/17 01:50 Dose: 0.125 mg Pramipexole Dihydrochloride (Mirapex) 0.125 mg PO BEDTIME [facility] Last Admin: 06/06/17 21:09 Dose: Not Given Pramipexole Dihydrochloride (Mirapex) 0.125 mg PO BEDTIME ONE Stop: 06/06/17 00:35 Last Admin: 06/06/17 01:11 Dose: 0.125 mg Pramipexole Dihydrochloride (Mirapex) Confirm Administered Dose 0.5 mg .ROUTE .STK-MED ONE Stop: 06/06/17 01:08 Last Admin: 06/06/17 03:12 Dose: Not Given Pramipexole Dihydrochloride (Mirapex) 0.125 mg PO NOW [facility] Stop: 06/07/17 03:50 Last Admin: 06/07/17 04:22 Dose: 0.125 mg Pramipexole Dihydrochloride (Mirapex) Confirm Administered Dose 0.5 mg .ROUTE .STK-MED ONE Stop: 06/07/17 04:19 Last Admin: 06/07/17 04:22 Dose: Not Given Pramipexole Dihydrochloride (Mirapex) 0.125 mg PO ONETIME ONE Stop: 06/07/17 14:31 Last Admin: 06/07/17 14:09 Dose: 0.125 mg Pramipexole Dihydrochloride (Mirapex) Confirm Administered Dose 0.5 mg .ROUTE .STK-MED ONE Stop: 06/07/17 23:27 Last Admin: 06/07/17 23:35 Dose: Not Given - Exam General: Alert, Oriented Neck: Supple Lungs: Clear to Auscultation, Decreased Breath Sounds Cardiovascular: Regular Rhythm GI/Abdominal Exam: Normal Bowel Sounds Peripheral Pulses: 1+: Radial (L), Radial (R) Neurological: No New Focal Deficit Psy/Mental Status: Alert, Normal Affect, Normal Mood - Problem List Review Problem List Initiated/Reviewed/Updated: Yes - My Orders Last 24 Hours: My Active Orders 06/07/17 21:00 Pramipexole [Mirapex] 0.125 mg PO BEDTIME 06/07/17 23:11 Pramipexole [Mirapex] 0.125 mg PO BEDTIME PRN 06/08/17 08:00 Metolazone [Zaroxolyn] 2.5 mg PO BIDDIURETIC 06/08/17 21:00 methylPREDNISolone [Medrol] 8 mg PO BEDTIME 06/09/17 05:11 CBC WITH AUTO DIFF [HEME] Routine COMPREHENSIVE METABOLIC PN,CMP [CHEM] Routine RETICULOCYTE COUNT [HEME] Routine 06/09/17 08:00 methylPREDNISolone [Medrol] 4 mg PO 0800,1100,1700,2100 06/10/17 08:00 methylPREDNISolone [Medrol] 4 mg PO TID@0800,1100,2100 06/11/17 08:00 methylPREDNISolone [Medrol] 4 mg PO BID@0800,2100 06/12/17 08:00 methylPREDNISolone [Medrol] 4 mg PO WITHBREAKFAST - Plan Plan:: Assessment/Plan: #1. CHF with valvular dysfunction: I feel he is fluid overloaded yet and will continue with Lasix. #2. ASHD: Stable #3. Anemia: History of MDS. Hb went down to 7.5 this AM and have given 1 unit of blood this morning. #4. Mitral valve: Dysfunction. History of Mitral valve Repair #5. History of Pulmonary hypertension #6. S/P CABS: #7. Respiratory distress: [place]ago continue with Nebs and started on a Medrol dose radu which has helped his breathing. #8. Increased bili: Ultrasound of abd is normal.
[2017-06-08] MEDS: Fish Oil/Omega-3 Fatty Acids 1 Gm Cap PO SCH (21:03)
[2017-06-08] MEDS: Aspirin 81 MG Tab.EC PO SCH (21:06)
[2017-06-08] MEDS: Folic Acid 1 MG Tab PO SCH (21:07)
[2017-06-08] MEDS: Simvastatin 20 MG Tab PO SCH (21:10)
[2017-06-08] MEDS: Pramipexole 0.25 MG Tab PO SCH (21:14)
[2017-06-08] MEDS ORDERED: Pramipexole 0.5 MG Tab PO PRN (22:00)
[2017-06-09] MEDS: Arformoterol 15 MCG/2 ML Neb Soln NEB SCH (08:00)
[2017-06-09] MEDS: Formoterol/Mometasone 200-5 MCG 8.8 GM Inhaler IH SCH (08:01)
[2017-06-09] MEDS: Levalbuterol Tartrate HFA 15 GM Inhaler INH SCH (08:01)
[2017-06-09] MEDS: Metolazone 2.5 MG Tab PO SCH ×2 (08:33→13:57)
[2017-06-09] MEDS: Ferrous Sulfate 325 MG Tab PO SCH (08:34)
[2017-06-09] MEDS: Spironolactone 25 MG Tab PO SCH (08:34)
[2017-06-09] MEDS: Cholecalciferol (Vitamin D3) 1,000 Unit Tab PO SCH (08:35)
[2017-06-09] MEDS: Cyanocobalamin (Vitamin B12) 1,000 MCG Tab PO SCH (08:35)
[2017-06-09] MEDS: Tamsulosin 0.4 MG Cap.ER PO SCH (08:35)
[2017-06-09] MEDS: Hydrochlorothiazide 25 MG Tab PO SCH (08:35)
[2017-06-09] MEDS: Metoprolol Tartrate 25 MG Tab PO SCH (08:36)
[2017-06-09] MEDS: Potassium Chloride 20 MEQ Tab.ER PO SCH (11:35)
[2017-06-09] MEDS ORDERED: Furosemide 40 MG Tab PO SCH (12:00)
--- NOTE | 2017-06-09 12:18 | PCM.PN ---
- General Info Date of Service: 06/09/17 Functional Status: Reports: Pain Controlled - Review of Systems General: Reports: Weakness, Fatigue HEENT: Reports: No Symptoms Pulmonary: Reports: Shortness of Breath Cardiovascular: Reports: Dyspnea on Exertion, Orthopnea, PND, Edema, Lightheadedness Gastrointestinal: Reports: Diarrhea, Nausea Genitourinary: Reports: Other (wilson cath in place) Musculoskeletal: Reports: No Symptoms Skin: Reports: No Symptoms Neurological: Reports: No Symptoms, Difficulty Walking, Weakness Psychiatric: Reports: Anxiety - Patient Data Vitals - Most Recent: Last Vital Signs Temp 97.1 F 06/09/17 11:00 Pulse 90 06/09/17 11:00 Resp 18 06/09/17 11:00 BP 122/54 L 06/09/17 11:00 Pulse Ox 98 06/09/17 11:00 Weight - Most Recent: 242 lb 12.8 oz I&O - Last 24 Hours: Intake & Output 06/08/17 06/09/17 06/09/17 22:59 06:59 14:59 Intake Total 280 Output Total 1250 1200 450 Balance -970 -1200 -450 Lab Results Last 24 Hours: Laboratory Results - last 24 hr 06/07/17 06/09/17 06/09/17 Range/Units 05:30 05:58 05:58 WBC 2.2 L (4.5-11.0) K/uL RBC 2.47 L (4.30-5.90) M/uL Hgb 8.7 L (12.0-15.0) g/dL Hct 27.8 L (40.0-54.0) % MCV 113 H (80-98) fL MCH 35 H (27-31) pg MCHC 31 L (32-36) % Plt Count 52 L (150-400) K/uL Neut % (Auto) 73 H (36-66) % Lymph % (Auto) 17 L (24-44) % [place] % (Auto) 5 (2-6) % Eos % (Auto) 5 H (2-4) % Baso % (Auto) 0 (0-1) % Percent Retic 4.8 H (0.5-1.5) % Sodium 139 L (140-148) mmol/L Potassium 5.3 H (3.6-5.2) mmol/L Chloride 100 (100-108) mmol/L Carbon Dioxide 30 (21-32) mmol/L Anion Gap 14.3 H (5.0-14.0) mmol/L BUN 72 H (7-18) mg/dL Creatinine 1.6 H (0.8-1.3) mg/dL Est Cr Clr Drug Dosing 41.29 mL/min Estimated GFR (MDRD) 42 L (>60) Glucose 122 H (74-106) mg/dL Calcium 9.2 (8.5-10.1) mg/dL Total Bilirubin 3.6 H (0.2-1.0) mg/dL AST 51 H (15-37) U/L ALT 32 (12-78) U/L Alkaline Phosphatase 46 (46-116) U/L Total Protein 6.9 (6.4-8.2) g/dL Albumin 3.6 (3.4-5.0) g/dL Globulin 3.3 (2.3-3.5) g/dL Albumin/Globulin Ratio 1.1 L (1.2-2.2) Crossmatch See Detail Med Orders - Current: Current Medications Arformoterol Tartrate (Brovana) 15 mcg NEB BIDRT [facility] Last Admin: 06/09/17 08:00 Dose: 15 mcg Aspirin (Halfprin) 81 mg PO BEDTIME [facility] Last Admin: 06/08/17 21:06 Dose: 81 mg Cholecalciferol (Vitamin D3) 1,000 units PO DAILY [facility] Last Admin: 06/09/17 08:35 Dose: 1,000 units Cyanocobalamin (Vitamin B12) 1,000 mcg PO DAILY [facility] Last Admin: 06/09/17 08:35 Dose: 1,000 mcg Ferrous Sulfate (Ferrous Sulfate) 325 mg PO DAILY [facility] Last Admin: 06/09/17 08:34 Dose: 325 mg Fish Oil (Fish Oil) 1,000 gm PO BEDTIME [facility] Last Admin: 06/08/17 21:03 Dose: 1,000 gm Folic Acid (Folic Acid) 1 mg PO BEDTIME [facility] Last Admin: 06/08/17 21:07 Dose: 1 mg Furosemide (Lasix) 40 mg PO BID [facility] Guaifenesin/Dextromethorphan (Robitussin Dm) 10 ml PO Q4H PRN PRN Reason: Cough Last Admin: 06/06/17 23:27 Dose: 10 ml Hydrochlorothiazide (Hydrochlorothiazide) 25 mg PO DAILY [facility] Last Admin: 06/09/17 08:35 Dose: 25 mg Levalbuterol HCl (Xopenex Hfa) 0 gm INH BIDRT [facility] Last Admin: 06/09/17 08:01 Dose: 2 puff Methylprednisolone (Medrol) 4 mg PO 0800,1100,1700,2100 [facility] Stop: 06/09/17 21:01 Last Admin: 06/09/17 11:50 Dose: 4 mg Methylprednisolone (Medrol) 4 mg PO TID@0800,1100,2100 [facility] Stop: 06/10/17 21:01 Methylprednisolone (Medrol) 4 mg PO BID@0800,2100 [facility] Stop: 06/11/17 21:01 Methylprednisolone (Medrol) 4 mg PO WITHBREAKFAST [facility] Stop: 06/12/17 08:01 Metolazone (Zaroxolyn) 2.5 mg PO BIDDIURETIC [facility] Last Admin: 06/09/17 08:33 Dose: 2.5 mg Metoprolol Tartrate (Lopressor) 12.5 mg PO BID [facility] Last Admin: 06/09/17 08:36 Dose: 12.5 mg Mometasone Furoate/Formoterol Fumar (Dulera 200-5 Mcg) 2 puff IH BIDRT [facility] Last Admin: 06/09/17 08:01 Dose: 2 puff Potassium Chloride (Klor-Con M20) 20 meq PO BID [facility] Last Admin: 06/09/17 11:35 Dose: Not Given Pramipexole Dihydrochloride (Mirapex) 0.125 mg PO BEDTIME [facility] Last Admin: 06/08/17 21:14 Dose: 0.125 mg Pramipexole Dihydrochloride (Mirapex) 0.125 mg PO BEDTIME PRN PRN Reason: Irritability Last Admin: 06/09/17 00:08 Dose: 0.125 mg Simvastatin (Zocor) 40 mg PO BEDTIME [facility] Last Admin: 06/08/17 21:10 Dose: 40 mg Sodium Chloride (Saline Flush) 10 ml FLUSH ASDIRECTED PRN PRN Reason: Keep Vein Open Last Admin: 06/04/17 16:18 Dose: 10 ml Spironolactone (Aldactone) 25 mg PO DAILY [facility] Last Admin: 06/09/17 08:34 Dose: 25 mg Tamsulosin HCl (Flomax) 0.4 mg PO PCBREAKFAST [facility] Last Admin: 06/09/17 08:35 Dose: 0.4 mg Discontinued Medications Albuterol (Proventil Neb Soln) 2.5 mg NEB ONETIME ONE Stop: 06/07/17 04:34 Last Admin: 06/07/17 04:46 Dose: 2.5 mg Albuterol/Ipratropium (Duoneb 3.0-0.5 Mg/3 Ml) 3 ml INH Q4H [facility] Last Admin: 06/05/17 09:46 Dose: 3 ml Aspirin (Halfprin) 81 mg PO DAILY [facility] Last Admin: 06/05/17 09:17 Dose: 81 mg Fish Oil (Fish Oil) 1,000 gm PO DAILY [facility] Last Admin: 06/06/17 10:23 Dose: Not Given Folic Acid (Folic Acid) 1 mg PO DAILY [facility] Last Admin: 06/06/17 10:23 Dose: Not Given Furosemide (Lasix) 40 mg IVPUSH ONETIME ONE Stop: 06/04/17 15:56 Last Admin: 06/04/17 16:18 Dose: 40 mg Furosemide (Lasix) 40 mg IVPUSH ONETIME ONE Stop: 06/04/17 17:38 Last Admin: 06/04/17 21:00 Dose: 40 mg Furosemide (Lasix) Confirm Administered Dose 40 mg .ROUTE .STK-MED ONE Stop: 06/04/17 20:59 Last Admin: 06/04/17 21:12 Dose: Not Given Furosemide (Lasix) 40 mg IVPUSH ONETIME ONE Stop: 06/07/17 13:01 Furosemide (Lasix) 40 mg IVPUSH ONETIME ONE Stop: 06/07/17 13:31 Last Admin: 06/07/17 13:33 Dose: 40 mg Furosemide (Lasix) 40 mg IVPUSH ONETIME ONE Stop: 06/07/17 18:01 Last Admin: 06/07/17 17:23 Dose: 40 mg Furosemide (Lasix) 40 mg IVPUSH ONETIME ONE Stop: 06/08/17 14:31 Last Admin: 06/08/17 14:59 Dose: 40 mg Ipratropium [place] (Atrovent) 0.5 mg NEB BIDRT [facility] Last Admin: 06/05/17 07:55 Dose: Not Given Methylprednisolone (Medrol) 0 mg PO ASDIRECTED [facility]; Protocol Stop: 06/07/17 09:00 Methylprednisolone (Medrol) 8 mg PO BID@0800,2100 [facility] Stop: 06/07/17 21:01 Last Admin: 06/07/17 22:05 Dose: 8 mg Methylprednisolone (Medrol) 4 mg PO BID@1100,1700 [facility] Stop: 06/07/17 17:01 Last Admin: 06/07/17 17:22 Dose: 4 mg Methylprednisolone (Medrol) 4 mg PO TIDMEALS [facility] Stop: 06/08/17 17:01 Last Admin: 06/08/17 17:50 Dose: 4 mg Methylprednisolone (Medrol) 8 mg PO BEDTIME [facility] Stop: 06/08/17 21:01 Last Admin: 06/08/17 21:09 Dose: 8 mg Metolazone (Zaroxolyn) 2.5 mg PO ONETIME ONE Stop: 06/04/17 15:55 Last Admin: 06/04/17 16:14 Dose: 2.5 mg Metolazone (Zaroxolyn) 2.5 mg PO ONETIME ONE Stop: 06/07/17 13:01 Last Admin: 06/07/17 12:57 Dose: 2.5 mg Metolazone (Zaroxolyn) 2.5 mg PO ONETIME ONE Stop: 06/07/17 18:01 Last Admin: 06/07/17 17:22 Dose: 2.5 mg Mometasone Furoate/Formoterol Fumar (Dulera 200-5 Mcg) 2 puff IH BID [facility] Last Admin: 06/04/17 22:30 Dose: 2 puff Non-Formulary Medication (Ipratropium [Atrovent Hfa]) 2 puff INH BID [facility] Last Admin: 06/06/17 16:18 Dose: Not Given Pramipexole Dihydrochloride (Mirapex) 0.125 mg PO BEDTIME [facility] Last Admin: 06/04/17 22:34 Dose: 0.125 mg Pramipexole Dihydrochloride (Mirapex) 0.125 mg PO ONETIME ONE Stop: 06/05/17 01:30 Last Admin: 06/05/17 01:50 Dose: 0.125 mg Pramipexole Dihydrochloride (Mirapex) 0.125 mg PO BEDTIME [facility] Last Admin: 06/06/17 21:09 Dose: Not Given Pramipexole Dihydrochloride (Mirapex) 0.125 mg PO BEDTIME ONE Stop: 06/06/17 00:35 Last Admin: 06/06/17 01:11 Dose: 0.125 mg Pramipexole Dihydrochloride (Mirapex) Confirm Administered Dose 0.5 mg .ROUTE .STK-MED ONE Stop: 06/06/17 01:08 Last Admin: 06/06/17 03:12 Dose: Not Given Pramipexole Dihydrochloride (Mirapex) 0.125 mg PO NOW [facility] Stop: 06/07/17 03:50 Last Admin: 06/07/17 04:22 Dose: 0.125 mg Pramipexole Dihydrochloride (Mirapex) Confirm Administered Dose 0.5 mg .ROUTE .STK-MED ONE Stop: 06/07/17 04:19 Last Admin: 06/07/17 04:22 Dose: Not Given Pramipexole Dihydrochloride (Mirapex) 0.125 mg PO ONETIME ONE Stop: 06/07/17 14:31 Last Admin: 06/07/17 14:09 Dose: 0.125 mg Pramipexole Dihydrochloride (Mirapex) 0.125 mg PO BEDTIME PRN PRN Reason: Irritability Last Admin: 06/07/17 23:28 Dose: 0.125 mg Pramipexole Dihydrochloride (Mirapex) Confirm Administered Dose 0.5 mg .ROUTE .STK-MED ONE Stop: 06/07/17 23:27 Last Admin: 06/07/17 23:35 Dose: Not Given - Exam General: Alert, Oriented, Cooperative, Moderate Distress HEENT: Pupils Equal, Pupils Reactive, EOMI, Mucous Membr. Moist/[place] Neck: Supple Lungs: Decreased Breath Sounds, Wheezing GI/Abdominal Exam: Soft Extremities: Pedal Edema Peripheral Pulses: 1+: Radial (L), Radial (R) Skin: Warm, Dry, Intact Psy/Mental Status: Alert, Normal Affect, Normal Mood - Problem List Review Problem List Initiated/Reviewed/Updated: Yes - My Orders Last 24 Hours: My Active Orders 06/08/17 18:19 GLUCOSE 6 PHOSPHATE DEHYDROGEN [REF] Routine 06/08/17 22:00 Pramipexole [Mirapex] 0.125 mg PO BEDTIME PRN 06/09/17 08:00 methylPREDNISolone [Medrol] 4 mg PO 0800,1100,1700,2100 06/09/17 12:00 Furosemide [Lasix] 40 mg PO BID 06/10/17 08:00 methylPREDNISolone [Medrol] 4 mg PO TID@0800,1100,2100 06/11/17 08:00 methylPREDNISolone [Medrol] 4 mg PO BID@0800,2100 06/12/17 08:00 methylPREDNISolone [Medrol] 4 mg PO WITHBREAKFAST - Plan Plan:: Assessment/Plan: #1. CHF with valvular dysfunction: I feel he is fluid overloaded yet and will continue with Lasix. #2. ASHD: Stable #3. Anemia: History of MDS. Hb up to 8.7 after a unit of blood yesterday which is the second unit while in the hospital. #4. Mitral valve: Dysfunction. History of Mitral valve Repair #5. History of Pulmonary hypertension #6. S/P CABS: #7. Respiratory distress: [place] continue with Nebs and started on a Medrol dose radu yesterday which has helped his breathing. #8. Increased bili: Ultrasound of abd is normal. I have spoken with [place] and he will be transferred to [facility] when a bed is available.
--- NOTE | 2017-06-09 12:21 | PCM.DCSUM1 ---
Discharge Summary - Hospital Course Brief History: He was admitted from the ER after coming in by the EMS. He had significant weight gain with Shortness of breath and generaized weakness. - Discharge Data Discharge Date: 06/09/17 Discharge Disposition: Home, Self-Care 01 Condition: Good - Patient Summary/Data Hospital Course: While in the hospital he was given 2 units of blood after fluid was removed by diuretics. His breathing was difficult during the hospital stay and was on 3 L. of Oxygen. A significant amount of fluid was removed The Pts. were low and Hb remained low even after 2 units of pac cells. A wilson cath. was placed to monitor fluids. I feel he needs further investigations to identify if there is a problem that can be corrected. - Patient Instructions Diet: Heart Healthy Diet Activity: As Tolerated, Bedrest, May Use Bathroom - Discharge Plan Home Medications: Home Meds Aspirin [Halfprin] 81 mg PO DAILY 09/04/16 [History] Cholecalciferol (Vitamin D3) [Vitamin D3] 400 unit PO DAILY 09/04/16 [History] Cyanocobalamin (Vitamin B12) [Vitamin B12] 1,000 mcg PO DAILY 09/04/16 [History] Ferrous Sulfate [Iron] 325 mg PO DAILY 09/04/16 [History] Folic Acid 1 mg PO DAILY 09/04/16 [History] [place]-3/DHA/Epa/Fish Oil [[place]-3 Fish Oil 1,000 MG Sfgl] 1,000 mg PO DAILY 04/22 [History] Simvastatin [Zocor] 40 mg PO BEDTIME tablet 09/06/16 [Rx] Tamsulosin [Flomax] 0.4 mg PO PCBREAKFAST cap.er 09/06/16 [Rx] Metoprolol Tartrate [Lopressor] 12.5 mg PO BID 09/26/16 [History] Pramipexole [Mirapex] 0.125 mg PO BEDTIME 09/26/16 [History] Levalbuterol Tartrate [Xopenex HFA] 2 puff INH BID 06/04/17 [History] Arformoterol [Brovana] 15 mcg NEB BIDRT neb 06/09/17 [Rx] Dextromethorphan/guaiFENesin [Robitussin DM] 10 ml PO Q4H PRN cup 06/09/17 [Rx] Furosemide [Lasix] 40 mg PO BID tablet 06/09/17 [Rx] Hydrochlorothiazide 25 mg PO DAILY tablet 06/09/17 [Rx] Levalbuterol Tartrate [Xopenex HFA] 0 gm INH BIDRT inhaler 06/09/17 [Rx] Metolazone [Zaroxolyn] 2.5 mg PO BIDDIURETIC tablet 06/09/17 [Rx] Pramipexole [Mirapex] 0.125 mg PO BEDTIME PRN tablet 06/09/17 [Rx] Spironolactone [Aldactone] 25 mg PO DAILY tablet 06/09/17 [Rx] methylPREDNISolone [Medrol] 4 mg PO 0800,1100,1700,2100 tablet 06/09/17 [Rx] methylPREDNISolone [Medrol] 4 mg PO BID@0800,2100 tablet 06/09/17 [Rx] methylPREDNISolone [Medrol] 4 mg PO TID@0800,1100,2100 tablet 06/09/17 [Rx] methylPREDNISolone [Medrol] 4 mg PO WITHBREAKFAST tablet 06/09/17 [Rx] Forms: ED Department Discharge Referrals: Hiro Rawls Sr, MD [Primary Care Provider] - - Discharge Summary/Plan Comment Discharge Summary/Plan Comment: Assessment/Plan: #1. CHF with valvular dysfunction: I feel he is fluid overloaded yet and will continue with Lasix. #2. ASHD: Stable #3. Anemia: History of MDS. Hb up to 8.7 after a unit of blood yesterday which is the second unit while in the hospital. #4. Mitral valve: Dysfunction. History of Mitral valve Repair #5. History of Pulmonary hypertension #6. S/P CABS: #7. Respiratory distress: [place] continue with Nebs and started on a Medrol dose radu yesterday which has helped his breathing. #8. Increased bili: Ultrasound of abd is normal. I have spoken with [place] and he will be transferred to [facility] when a bed is available. - Patient Data Vitals - Most Recent: Last Vital Signs Temp 97.1 F 06/09/17 11:00 Pulse 90 06/09/17 11:00 Resp 18 06/09/17 11:00 BP 122/54 L 06/09/17 11:00 Pulse Ox 98 06/09/17 11:00 Weight - Most Recent: 242 lb 12.8 oz I&O - Last 24 hours: Intake & Output 06/08/17 06/09/17 06/09/17 22:59 06:59 14:59 Intake Total 280 Output Total 1250 1200 450 Balance -970 -1200 -450 Lab Results - Last 24 hrs: Laboratory Results - last 24 hr 06/07/17 06/09/17 06/09/17 Range/Units 05:30 05:58 05:58 WBC 2.2 L (4.5-11.0) K/uL RBC 2.47 L (4.30-5.90) M/uL Hgb 8.7 L (12.0-15.0) g/dL Hct 27.8 L (40.0-54.0) % MCV 113 H (80-98) fL MCH 35 H (27-31) pg MCHC 31 L (32-36) % Plt Count 52 L (150-400) K/uL Neut % (Auto) 73 H (36-66) % Lymph % (Auto) 17 L (24-44) % [place] % (Auto) 5 (2-6) % Eos % (Auto) 5 H (2-4) % Baso % (Auto) 0 (0-1) % Percent Retic 4.8 H (0.5-1.5) % Sodium 139 L (140-148) mmol/L Potassium 5.3 H (3.6-5.2) mmol/L Chloride 100 (100-108) mmol/L Carbon Dioxide 30 (21-32) mmol/L Anion Gap 14.3 H (5.0-14.0) mmol/L BUN 72 H (7-18) mg/dL Creatinine 1.6 H (0.8-1.3) mg/dL Est Cr Clr Drug Dosing 41.29 mL/min Estimated GFR (MDRD) 42 L (>60) Glucose 122 H (74-106) mg/dL Calcium 9.2 (8.5-10.1) mg/dL Total Bilirubin 3.6 H (0.2-1.0) mg/dL AST 51 H (15-37) U/L ALT 32 (12-78) U/L Alkaline Phosphatase 46 (46-116) U/L Total Protein 6.9 (6.4-8.2) g/dL Albumin 3.6 (3.4-5.0) g/dL Globulin 3.3 (2.3-3.5) g/dL Albumin/Globulin Ratio 1.1 L (1.2-2.2) Crossmatch See Detail Med Orders - Current: Current Medications Arformoterol Tartrate (Brovana) 15 mcg NEB BIDRT [facility] Last Admin: 06/09/17 08:00 Dose: 15 mcg Aspirin (Halfprin) 81 mg PO BEDTIME [facility] Last Admin: 06/08/17 21:06 Dose: 81 mg Cholecalciferol (Vitamin D3) 1,000 units PO DAILY [facility] Last Admin: 06/09/17 08:35 Dose: 1,000 units Cyanocobalamin (Vitamin B12) 1,000 mcg PO DAILY [facility] Last Admin: 06/09/17 08:35 Dose: 1,000 mcg Ferrous Sulfate (Ferrous Sulfate) 325 mg PO DAILY [facility] Last Admin: 06/09/17 08:34 Dose: 325 mg Fish Oil (Fish Oil) 1,000 gm PO BEDTIME [facility] Last Admin: 06/08/17 21:03 Dose: 1,000 gm Folic Acid (Folic Acid) 1 mg PO BEDTIME [facility] Last Admin: 06/08/17 21:07 Dose: 1 mg Furosemide (Lasix) 40 mg PO BID [facility] Guaifenesin/Dextromethorphan (Robitussin Dm) 10 ml PO Q4H PRN PRN Reason: Cough Last Admin: 06/06/17 23:27 Dose: 10 ml Hydrochlorothiazide (Hydrochlorothiazide) 25 mg PO DAILY [facility] Last Admin: 06/09/17 08:35 Dose: 25 mg Levalbuterol HCl (Xopenex Hfa) 0 gm INH BIDRT [facility] Last Admin: 06/09/17 08:01 Dose: 2 puff Methylprednisolone (Medrol) 4 mg PO 0800,1100,1700,2100 [facility] Stop: 06/09/17 21:01 Last Admin: 06/09/17 11:50 Dose: 4 mg Methylprednisolone (Medrol) 4 mg PO TID@0800,1100,2100 [facility] Stop: 06/10/17 21:01 Methylprednisolone (Medrol) 4 mg PO BID@0800,2100 [facility] Stop: 06/11/17 21:01 Methylprednisolone (Medrol) 4 mg PO WITHBREAKFAST [facility] Stop: 06/12/17 08:01 Metolazone (Zaroxolyn) 2.5 mg PO BIDDIURETIC [facility] Last Admin: 06/09/17 08:33 Dose: 2.5 mg Metoprolol Tartrate (Lopressor) 12.5 mg PO BID [facility] Last Admin: 06/09/17 08:36 Dose: 12.5 mg Mometasone Furoate/Formoterol Fumar (Dulera 200-5 Mcg) 2 puff IH BIDRT [facility] Last Admin: 06/09/17 08:01 Dose: 2 puff Potassium Chloride (Klor-Con M20) 20 meq PO BID [facility] Last Admin: 06/09/17 11:35 Dose: Not Given Pramipexole Dihydrochloride (Mirapex) 0.125 mg PO BEDTIME [facility] Last Admin: 06/08/17 21:14 Dose: 0.125 mg Pramipexole Dihydrochloride (Mirapex) 0.125 mg PO BEDTIME PRN PRN Reason: Irritability Last Admin: 06/09/17 00:08 Dose: 0.125 mg Simvastatin (Zocor) 40 mg PO BEDTIME [facility] Last Admin: 06/08/17 21:10 Dose: 40 mg Sodium Chloride (Saline Flush) 10 ml FLUSH ASDIRECTED PRN PRN Reason: Keep Vein Open Last Admin: 06/04/17 16:18 Dose: 10 ml Spironolactone (Aldactone) 25 mg PO DAILY [facility] Last Admin: 06/09/17 08:34 Dose: 25 mg Tamsulosin HCl (Flomax) 0.4 mg PO PCBREAKFAST [facility] Last Admin: 06/09/17 08:35 Dose: 0.4 mg Discontinued Medications Albuterol (Proventil Neb Soln) 2.5 mg NEB ONETIME ONE Stop: 06/07/17 04:34 Last Admin: 06/07/17 04:46 Dose: 2.5 mg Albuterol/Ipratropium (Duoneb 3.0-0.5 Mg/3 Ml) 3 ml INH Q4H [facility] Last Admin: 06/05/17 09:46 Dose: 3 ml Aspirin (Halfprin) 81 mg PO DAILY [facility] Last Admin: 06/05/17 09:17 Dose: 81 mg Fish Oil (Fish Oil) 1,000 gm PO DAILY [facility] Last Admin: 06/06/17 10:23 Dose: Not Given Folic Acid (Folic Acid) 1 mg PO DAILY [facility] Last Admin: 06/06/17 10:23 Dose: Not Given Furosemide (Lasix) 40 mg IVPUSH ONETIME ONE Stop: 06/04/17 15:56 Last Admin: 06/04/17 16:18 Dose: 40 mg Furosemide (Lasix) 40 mg IVPUSH ONETIME ONE Stop: 06/04/17 17:38 Last Admin: 06/04/17 21:00 Dose: 40 mg Furosemide (Lasix) Confirm Administered Dose 40 mg .ROUTE .STK-MED ONE Stop: 06/04/17 20:59 Last Admin: 06/04/17 21:12 Dose: Not Given Furosemide (Lasix) 40 mg IVPUSH ONETIME ONE Stop: 06/07/17 13:01 Furosemide (Lasix) 40 mg IVPUSH ONETIME ONE Stop: 06/07/17 13:31 Last Admin: 06/07/17 13:33 Dose: 40 mg Furosemide (Lasix) 40 mg IVPUSH ONETIME ONE Stop: 06/07/17 18:01 Last Admin: 06/07/17 17:23 Dose: 40 mg Furosemide (Lasix) 40 mg IVPUSH ONETIME ONE Stop: 06/08/17 14:31 Last Admin: 06/08/17 14:59 Dose: 40 mg Ipratropium [place] (Atrovent) 0.5 mg NEB BIDRT [facility] Last Admin: 06/05/17 07:55 Dose: Not Given Methylprednisolone (Medrol) 0 mg PO ASDIRECTED [facility]; Protocol Stop: 06/07/17 09:00 Methylprednisolone (Medrol) 8 mg PO BID@0800,2100 [facility] Stop: 06/07/17 21:01 Last Admin: 06/07/17 22:05 Dose: 8 mg Methylprednisolone (Medrol) 4 mg PO BID@1100,1700 [facility] Stop: 06/07/17 17:01 Last Admin: 06/07/17 17:22 Dose: 4 mg Methylprednisolone (Medrol) 4 mg PO TIDMEALS [facility] Stop: 06/08/17 17:01 Last Admin: 06/08/17 17:50 Dose: 4 mg Methylprednisolone (Medrol) 8 mg PO BEDTIME [facility] Stop: 06/08/17 21:01 Last Admin: 06/08/17 21:09 Dose: 8 mg Metolazone (Zaroxolyn) 2.5 mg PO ONETIME ONE Stop: 06/04/17 15:55 Last Admin: 06/04/17 16:14 Dose: 2.5 mg Metolazone (Zaroxolyn) 2.5 mg PO ONETIME ONE Stop: 06/07/17 13:01 Last Admin: 06/07/17 12:57 Dose: 2.5 mg Metolazone (Zaroxolyn) 2.5 mg PO ONETIME ONE Stop: 06/07/17 18:01 Last Admin: 06/07/17 17:22 Dose: 2.5 mg Mometasone Furoate/Formoterol Fumar (Dulera 200-5 Mcg) 2 puff IH BID [facility] Last Admin: 06/04/17 22:30 Dose: 2 puff Non-Formulary Medication (Ipratropium [Atrovent Hfa]) 2 puff INH BID [facility] Last Admin: 06/06/17 16:18 Dose: Not Given Pramipexole Dihydrochloride (Mirapex) 0.125 mg PO BEDTIME [facility] Last Admin: 06/04/17 22:34 Dose: 0.125 mg Pramipexole Dihydrochloride (Mirapex) 0.125 mg PO ONETIME ONE Stop: 06/05/17 01:30 Last Admin: 06/05/17 01:50 Dose: 0.125 mg Pramipexole Dihydrochloride (Mirapex) 0.125 mg PO BEDTIME [facility] Last Admin: 06/06/17 21:09 Dose: Not Given Pramipexole Dihydrochloride (Mirapex) 0.125 mg PO BEDTIME ONE Stop: 06/06/17 00:35 Last Admin: 06/06/17 01:11 Dose: 0.125 mg Pramipexole Dihydrochloride (Mirapex) Confirm Administered Dose 0.5 mg .ROUTE .STK-MED ONE Stop: 06/06/17 01:08 Last Admin: 06/06/17 03:12 Dose: Not Given Pramipexole Dihydrochloride (Mirapex) 0.125 mg PO NOW STA Stop: 06/07/17 03:50 Last Admin: 06/07/17 04:22 Dose: 0.125 mg Pramipexole Dihydrochloride (Mirapex) Confirm Administered Dose 0.5 mg .ROUTE .STK-MED ONE Stop: 06/07/17 04:19 Last Admin: 06/07/17 04:22 Dose: Not Given Pramipexole Dihydrochloride (Mirapex) 0.125 mg PO ONETIME ONE Stop: 06/07/17 14:31 Last Admin: 06/07/17 14:09 Dose: 0.125 mg Pramipexole Dihydrochloride (Mirapex) 0.125 mg PO BEDTIME PRN PRN Reason: Irritability Last Admin: 06/07/17 23:28 Dose: 0.125 mg Pramipexole Dihydrochloride (Mirapex) Confirm Administered Dose 0.5 mg .ROUTE .STK-MED ONE Stop: 06/07/17 23:27 Last Admin: 06/07/17 23:35 Dose: Not Given
[2017-06-09 13:54] VITALS: BP 127/51
== END 2017-06-09 14:39 | DRG 292 ==
LOC: JP.ED 14:21 → JP.MS 17:23
PROVIDERS: ADMIT Internal Medicine; ATTEND Internal Medicine
PROC: 30233N1 Transfusion of Nonautologous Red Blood Cells into Peripheral Vein, Percutaneous Approach (ICD-10-PCS; principal; 2017-06-05)
PROC: 30233N1 Transfusion of Nonautologous Red Blood Cells into Peripheral Vein, Percutaneous Approach (ICD-10-PCS; 2017-06-08)
DX: I11.0 Hypertensive heart disease with heart failure (principal); C95.90 Leukemia, unspecified not having achieved remission; R06.02 Shortness of breath; R60.9 Edema, unspecified; I50.9 Heart failure, unspecified; I25.10 Atherosclerotic heart disease of native coronary artery without angina pectoris; D64.9 Anemia, unspecified; J44.9 Chronic obstructive pulmonary disease, unspecified; R06.03 Acute respiratory distress; I34.8 Other nonrheumatic mitral valve disorders; Z87.891 Personal history of nicotine dependence; Z85.038 Personal history of other malignant neoplasm of large intestine; I25.2 Old myocardial infarction; Z95.1 Presence of aortocoronary bypass graft; N40.0 Benign prostatic hyperplasia without lower urinary tract symptoms; Z88.5 Allergy status to narcotic agent; Z88.8 Allergy status to other drugs, medicaments and biological substances; Z79.82 Long term (current) use of aspirin; Z91.048 Other nonmedicinal substance allergy status
CPT/HCPCS: 36415; 71045 ×2; 80053; 85025; 96374; 99285 ×2; A9270; J1940; J7050; 36430; 76700; 76700-26; 80048; 82247; 82607; 82746; 82955; 84450; 84460; 85045; 85610; 86850; 86900; 86901; 86920; 86922; 87070; 87205; 94640; 94640-76; 94664; J7605; J7620; P9016